=== PATIENT | male | born 1960 | race Hispanic/Latino ===

== ENCOUNTER 2017-10-11 05:37 | Emergency (ER) | payer SELFPAY ==
[2017-10-11] MEDS ORDERED: ASPIRIN PO ONE (06:09)
[2017-10-11] MEDS ORDERED: ASPIRIN ONE (06:12)
[2017-10-11 07:52] LABS: Basophils % (Auto) 0.2 % (0.0-1.8); Eosinophils % (Auto) 0.2 % (0.0-4.3); Hematocrit 36.9 % (35.5-45.6); Hemoglobin 12.5 gm/dl (11.8-15.2); Lymphocytes # (Auto) 0.7 K/mm3 (1.2-5.4); Mean Corpuscular HGB Conc 34 % (32-34); Mean Corpuscular Hemoglobin 33 pg (28-32); Mean Corpuscular Volume 99 fl (84-94); Monocytes # (Auto) 0.6 K/mm3 (0.0-0.8); Monocytes % (Auto) 7.2 % (0.0-7.3); Platelet Count 271 K/mm3 (140-440); Red Blood Count 3.74 M/mm3 (3.65-5.03); Red Cell Distribution Width 14.3 % (13.2-15.2)
[2017-10-11 08:12] LABS: BUN/Creatinine Ratio 14; Blood Urea Nitrogen 10 mg/dL (9-20); Calcium 8.1 mg/dL (8.4-10.2); Hemolysis Index 6
--- NOTE | 2017-10-11 08:37 | XRay Report ---
FINAL REPORT EXAM: XRAY CHEST SINGLE VIEW HISTORY: Chest Pain TECHNIQUE: AP portable view(s) of the chest obtained. PRIORS: None. FINDINGS: No mediastinal shift. Cardiac silhouette is not enlarged. There is nodular thickening in the region of the right minor fissure. No pneumothorax or effusion. Ill-defined retrocardiac left basilar opacity. IMPRESSION: Ill-defined retrocardiac left basilar opacity may represent infection in the proper clinical setting. PA and lateral chest radiographic follow-up to resolution is recommended. There is nodular thickening in the region of the right minor fissure. If this finding has not been previously documented, routine follow-up chest CT is suggested.
[2017-10-11] MEDS ORDERED: ROCEPHIN/NS 1 GM/50 ML 1 GM/50 ML BAG IV ONE (10:35)
[2017-10-11] MEDS ORDERED: TORADOL IV ONE (10:35)
[2017-10-11] MEDS ORDERED: MORPHINE IV ONE (10:35)
[2017-10-11] MEDS ORDERED: cefTRIAXone 1 GM in NACL 0.9% 20 ML IV ONE (11:00)
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
[2017-10-11 12:39] VITALS: BP 124/72
== END 2017-10-11 12:38 | disposition home or self-care (01) ==
LOC: ED 05:37
DX: J18.1 Lobar pneumonia, unspecified organism (principal)
CPT/HCPCS: 36415; 71045; 80048; 84484; 85025; 93005; 93010; 96365; 96375; 99285; J0696; J1885; J2270; 96361

== ENCOUNTER 2021-11-29 19:56 | Inpatient (IN) | payer SELFPAY ==
[2021-11-29] MEDS ORDERED: SODIUM CHLORIDE 0.9% 1000 ML 1,000 ML IV ONE (21:17)
[2021-11-29] MEDS ORDERED: MORPHINE 4 MG/1 ML INJ IV ONE (21:17)
[2021-11-29] MEDS ORDERED: ONDANSETRON 4 MG/2 ML INJ IV ONE (21:17)
--- NOTE | 2021-11-29 21:21 | Event Note ---
ED Screening Note Date of service: 11/29/21 Time: 21:19 ED Screening Note: Patient 61-year-old male with history of inguinal hernia who presents with abdominal pain radiating to right inguinal region for the past 2 days with nausea vomiting. Patient denies fevers or chills. Patient does endorse intermittent nausea and vomiting. Pain is described as 6/10 exacerbated by movement. Pain is relieved by nothing tried. Patient is tolerating p.o. at this time however. This initial assessment/diagnostic orders/clinical plan/treatment(s) is/are subject to change based on patients health status, clinical progression and re- assessment by fellow clinical providers in the ED. Further treatment and workup at subsequent clinical providers discretion. Patient/guardian urged not to elope from the ED as their condition may be serious if not clinically assessed and managed. Initial orders include: CT ABD Pelv, cbc, cmp, ua, iv , IFVs , Morphine , zofran
[2021-11-29 21:46] LABS: Basophils # (Auto) 0.1 K/mm3 (0.0-0.1); Basophils % (Auto) 0.3 % (0.0-1.8); Eosinophils % (Auto) 0.1 % (0.0-4.3); Hematocrit 32.9 % (35.5-45.6); Hemoglobin 10.2 gm/dl (11.8-15.2); Lymphocytes # (Auto) 1.3 K/mm3 (1.2-5.4); Lymphocytes % (Auto) 7.3 % (13.4-35.0); Mean Corpuscular HGB Conc 31 % (32-34); Mean Corpuscular Volume 93 fl (84-94); Monocytes # (Auto) 0.9 K/mm3 (0.0-0.8); Monocytes % (Auto) 5.1 % (0.0-7.3); Platelet Count 775 K/mm3 (140-440); Red Blood Count 3.55 M/mm3 (3.65-5.03); Red Cell Distribution Width 16.3 % (13.2-15.2)
[2021-11-29 22:05] LABS: Albumin 3.7 g/dL (3.9-5); Calcium 8.8 mg/dL (8.4-10.2)
[2021-11-29] MEDS ORDERED: HYDROmorphone 1 MG/1 ML INJ IV ONE ×2 (22:06→23:42)
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
[2021-11-29] MEDS ORDERED: POTASSIUM CHLORIDE ER 20 MEQ TAB PO ONE (22:54)
[2021-11-29] MEDS ORDERED: LACTATED RINGERS 2,000 ML IV ONE (22:54)
--- NOTE | 2021-11-29 23:06 | Cat Scan Report ---
CT ABDOMEN AND PELVIS WITH IV CONTRAST INDICATION: Pt complains of abdominal pain. COMPARISON: None available. TECHNIQUE: All CT scans at this facility use dose modulation, automated exposure control, iterative reconstructi on or weight based dosing, when appropriate, to reduce radiation dose to as low as reasonably achieva ble. FINDINGS: Lung Bases: No significant abnormality. Skeletal System: No acute abnormality. There is chronic compression deformity at L2. End-stage degen erative changes are noted at the hips. ABDOMEN: Liver: No significant abnormality. Gallbladder: No significant abnormality. Bile Ducts: No significant abnormality. Adrenals: No significant abnormality. Right Kidney: No significant abnormality. Left Kidney: No significant abnormality. There are a few punctate cysts. Pancreas: No significant abnormality. Spleen: No significant abnormality. Upper GI tract: Stomach and duodenum are unremarkable. There is mild thickening of proximal small bow el in the left upper quadrant. Lymph Nodes: No significant adenopathy. Aorta: No significant abnormality. Additional Findings: No significant abnormality. PELVIS: Colon: No acute abnormality. Urinary Bladder and Distal Ureters: No significant abnormality. Appendix: No significant abnormality. Lymph Nodes: No significant adenopathy. Additional Findings: There is a large right inguinal hernia which contains several loops of small bow el. The majority of the herniated small bowel is decompressed. There are a few fluid-filled mildly di stended loops within the hernia sac. There is a small left inguinal hernia as well. IMPRESSION: 1. Probable mild proximal enteritis. 2. Large right inguinal hernia contains multiple loops of distal small bowel. The majority of the he rniated small bowel is relatively collapsed. There are a few mildly distended loops of small bowel wi thin the hernia sac. Signer Name: Ernst Ellison MD Signed: 11/29/2021 11:02 PM Workstation Name: [id number]
[2021-11-29 23:16] LABS: INR 0.92 (0.87-1.13)
[2021-11-29 23:17] LABS: Partial Thromboplastin Time 26.9 Sec. (24.2-36.6)
[2021-11-29] MEDS ORDERED: PIPERACIL/TAZOBACTA 4.5/NS 100 4.5 GM/100 ML VIAL IV ONE (23:29)
[2021-11-30] MEDS ORDERED: ONDANSETRON 4 MG/2 ML INJ IV PRN ×3 (00:33→11:00)
[2021-11-30] MEDS ORDERED: MORPHINE 2 MG/1 ML INJ IV PRN (00:33)
[2021-11-30] MEDS ORDERED: HYDROmorphone 1 MG/1 ML INJ IV PRN (00:33)
--- NOTE | 2021-11-30 00:54 | Consultation ---
History of Present Illness Consult date: 11/30/21 Reason for consult: hernia Chief complaint: hernia - History of present illness History of present illness: 61 yo M with hx of chronic right inguinal hernia, chronic neck pain who presents to ER with c/o right inguinal pain radiating into scrotum for the last few days. States he has not been able to reduce the hernia for several months. He states he has not sought medical attention due to social issues. Pain is sharp. It is made better by medications provided in ER. He has been admitted to [facility] over the last 2-3 months for medical issues including LE edema, breathing problems, and LE cellulitis. He states he completed a course of antibiotics but does not know any of the other medications he was prescribed upon discharge from those facilities. He denies fevers. +nausea but no vomiting. He is having BMs regularly and passing flatus. He is urinating but states it has been difficult with hernia. He denies dysuria. No cough, sob. He was tolerating a diet and is asking for water now. No abdominal pain. He also c/o neuropathy in fingers and legs. He has been drinking heavily to cope with pain from neuropathy. Past History Past Medical History: other (chronic right inguinal hernia, chronic pain, neuropathy) Past Surgical History: Other (L arm surgery, R great toe amputation) Social history: smoking (vape), alcohol abuse (1 pint of liquor daily), other (methamphetamine use in the past - last Aug 2021) Medications and Allergies Allergies Allergy/AdvReac Type Severity Reaction Status Date / Time No Known Allergies Allergy Unverified 10/11/17 06:09 Home Medications Medication Instructions Recorded Confirmed Last Taken Type Amoxicillin 500 mg PO TID #21 capsule 10/11/17 Unknown Rx Benzonatate [Tessalon Perles] 100 mg PO Q8HR #12 capsule 10/11/17 Unknown Rx HYDROcodone/APAP 5-325 [[place] 1 each PO Q4HR PRN #12 tablet 10/11/17 Unknown Rx 5/325] Active Meds: Active Medications Hydromorphone HCl (Hydromorphone 1 Mg/1 Ml Inj) 0.5 mg IV Q3H PRN PRN Reason: Pain , Severe (7-10) Lactated Ringer's (Lactated Ringers) 2,000 mls @ 999 mls/hr IV BOLUS ONE Stop: 11/30/21 00:54 Sodium Chloride (Nacl 0.9% 1000 Ml) 1,000 mls @ 125 mls/hr IV DIRECT SOFIA Morphine Sulfate (Morphine 2 Mg/1 Ml Inj) 2 mg IV Q4H PRN PRN Reason: Pain, Moderate (4-6) Ondansetron HCl (Ondansetron 4 Mg/2 Ml Inj) 4 mg IV Q6H PRN PRN Reason: Nausea And Vomiting Review of Systems All systems: negative (10 pt ROS performed and negative except for that listed in HPI) Exam Vital Signs Resp 20 11/29/21 21:26 Narrative exam: Gen: AAOX3. Mild distress ENT: No scleral icterus or conjunctival pallor CV: s1, S2+ Resp: even and unlabored Abd: soft, NT, ND. There is a moderate sized right inguinoscrotal hernia without overlying skin changes. The hernia is soft and able to be reduced. +mod discomfort during reduction. No r/r/g Ext: No c/c/e. There is mild cellulitis involving b/l LE. There is a small open wound of the right great toe stump anteriorly and 2nd toe plantar aspect. Wounds are clean without drainage. Wound bed pink. Feet are warm. Results - Labs 11/29/21 21:22 11/29/21 21:22 Abnormal lab results 11/29/21 11/29/21 11/29/21 Range/Units 21:22 21:22 22:26 WBC 18.1 H (4.5-11.0) K/mm3 RBC 3.55 L (3.65-5.03) M/mm3 Hgb 10.2 L (11.8-15.2) gm/dl Hct 32.9 L (35.5-45.6) % MCHC 31 L (32-34) % RDW 16.3 H (13.2-15.2) % Plt Count 775 H (140-440) K/mm3 Lymph % (Auto) 7.3 L (13.4-35.0) % [place] # (Auto) 0.9 H (0.0-0.8) K/mm3 Seg Neutrophils % 87.2 H (40.0-70.0) % Seg Neutrophils # 15.8 H (1.8-7.7) K/mm3 Sodium 132 L (137-145) mmol/L Potassium 3.4 L (3.6-5.0) mmol/L Chloride 93.4 L (98-107) mmol/L Carbon Dioxide 20 L (22-30) mmol/L Creatinine 1.9 H (0.8-1.3) mg/dL Glucose 159 H (75-100) mg/dL Lactic Acid 3.10 H* (0.7-2.0) mmol/L Alkaline Phosphatase 150 H (35-129) units/L Total Protein 8.7 H (6.3-8.2) g/dL Albumin 3.7 L (3.9-5) g/dL Diabetes panel 11/29/21 Range/Units 21:22 Sodium 132 L (137-145) mmol/L Potassium 3.4 L (3.6-5.0) mmol/L Chloride 93.4 L (98-107) mmol/L Carbon Dioxide 20 L (22-30) mmol/L BUN 20 (9-20) mg/dL Creatinine 1.9 H (0.8-1.3) mg/dL Glucose 159 H (75-100) mg/dL Calcium 8.8 (8.4-10.2) mg/dL AST 31 (5-40) units/L ALT 24 (7-56) units/L Alkaline Phosphatase 150 H (35-129) units/L Total Protein 8.7 H (6.3-8.2) g/dL Albumin 3.7 L (3.9-5) g/dL Calcium panel 11/29/21 Range/Units 21:22 Calcium 8.8 (8.4-10.2) mg/dL Albumin 3.7 L (3.9-5) g/dL Pituitary panel 11/29/21 Range/Units 21:22 Sodium 132 L (137-145) mmol/L Potassium 3.4 L (3.6-5.0) mmol/L Chloride 93.4 L (98-107) mmol/L Carbon Dioxide 20 L (22-30) mmol/L BUN 20 (9-20) mg/dL Creatinine 1.9 H (0.8-1.3) mg/dL Glucose 159 H (75-100) mg/dL Calcium 8.8 (8.4-10.2) mg/dL Adrenal panel 11/29/21 Range/Units 21:22 Sodium 132 L (137-145) mmol/L Potassium 3.4 L (3.6-5.0) mmol/L Chloride 93.4 L (98-107) mmol/L Carbon Dioxide 20 L (22-30) mmol/L BUN 20 (9-20) mg/dL Creatinine 1.9 H (0.8-1.3) mg/dL Glucose 159 H (75-100) mg/dL Calcium 8.8 (8.4-10.2) mg/dL Total Bilirubin 0.30 (0.1-1.2) mg/dL AST 31 (5-40) units/L ALT 24 (7-56) units/L Alkaline Phosphatase 150 H (35-129) units/L Total Protein 8.7 H (6.3-8.2) g/dL Albumin 3.7 L (3.9-5) g/dL - Imaging CT scan - abdomen: report reviewed, image reviewed CT scan - pelvis: report reviewed, image reviewed Assessment and Plan 61 yo M with reducible chronic right inguinal hernia, not obstructed Plan: Admit to hospitalist service 1. NPO 2. aggressive IVF hydration 3. prn pain and nausea control 4. DVT ppx 5. UA/CXR 6. repeat labs in am 7. empiric abx 8. recommend CIWA protocol 9. Plan to resuscitate patient tonight and hernia repair in am. Hernia is cu rrently reducible without clinical or radiographic evidence of obstruction, strangulation. Suspect patient is volume depleted which may partially account for lab abnormalities. Other sources of infections to be r/o. 10. Discussed hernia surgery with patient. All risks, benefits, alternatives discussed. Questions answered and consent obtained. D/W Dr. Pina Thank you, please call with questions
--- NOTE | 2021-11-30 01:05 | XRay Report ---
CHEST 1 VIEW INDICATION: sob. COMPARISON: 10/11/2017 FINDINGS: Support devices: None. Heart: Normal. Lungs/Pleura: No consolidation or effusion. No pneumothorax. IMPRESSION: 1. No acute findings. Signer Name: Ernst Ellison MD Signed: 11/30/2021 1:01 AM Workstation Name: [id number]
[2021-11-30] MEDS ORDERED: ACETAMINOPHEN 325 MG TAB PO PRN ×2 (01:41→02:49)
--- NOTE | 2021-11-30 01:53 | History and Physical Report ---
History of Present Illness Date of examination: 11/30/21 Date of admission: 11/30/2021 Chief complaint: Scrotal Swelling History of present illness: 61-year-old male seen in the emergency room today complaining of scrotal swelling. Patient has known history of right-sided inguinal/scrotal hernia. He is usually able to reduce it however he has had difficulty reducing it today and has also been having pain. Swelling has been getting progressively worse. He has had some nausea but no vomiting. Denies any hematuria or dysuria, denies any fever or chills. Patient is currently homeless. He has not been following up with any physician secondary to insurance issues. Work-up in the emergency room today, CT of the abdomen and pelvis reveals probable mild proximal enteritis, large right inguinal hernia. General surgeon has been consulted by the ER physician for evaluation. Past History Past Medical History: other (chronic right inguinal hernia, chronic pain, neuropathy)) Past Surgical History: Other (L arm surgery, R great toe amputation) Social history: smoking (vape), alcohol abuse (1 pint of liquor daily), other (methamphetamine use in the past - last Aug 2021) Medications and Allergies Allergies Allergy/AdvReac Type Severity Reaction Status Date / Time No Known Allergies Allergy Unverified 10/11/17 06:09 Home Medications Medication Instructions Recorded Confirmed Last Taken Type Amoxicillin 500 mg PO TID #21 capsule 10/11/17 Unknown Rx Benzonatate [Tessalon Perles] 100 mg PO Q8HR #12 capsule 10/11/17 Unknown Rx HYDROcodone/APAP 5-325 [[place] 1 each PO Q4HR PRN #12 tablet 10/11/17 Unknown Rx 5/325] Active Meds: Active Medications Acetaminophen (Acetaminophen 325 Mg Tab) 650 mg PO Q4H PRN PRN Reason: Pain MILD(1-3)/Fever >100.5/GUZMAN Hydromorphone HCl (Hydromorphone 1 Mg/1 Ml Inj) 0.5 mg IV Q3H PRN PRN Reason: Pain , Severe (7-10) Sodium Chloride (Nacl 0.9% 1000 Ml) 1,000 mls @ 125 mls/hr IV DIRECT SOFIA Morphine Sulfate (Morphine 2 Mg/1 Ml Inj) 2 mg IV Q4H PRN PRN Reason: Pain, Moderate (4-6) Ondansetron HCl (Ondansetron 4 Mg/2 Ml Inj) 4 mg IV Q6H PRN PRN Reason: Nausea And Vomiting Ondansetron HCl (Ondansetron 4 Mg/2 Ml Inj) 4 mg IV Q8H PRN PRN Reason: Nausea And Vomiting Sodium Chloride (Sodium Chloride 0.9% 10 Ml Flush Syringe) 10 ml IV BID SOFIA Sodium Chloride (Sodium Chloride 0.9% 10 Ml Flush Syringe) 10 ml IV PRN PRN PRN Reason: LINE FLUSH Review of Systems Constitutional: no fever, no chills Ears, nose, mouth and throat: no nasal congestion, no sore throat Cardiovascular: no chest pain, no palpitations Respiratory: no cough, no shortness of breath Gastrointestinal: no abdominal pain, no nausea, no vomiting, no diarrhea Genitourinary Male: no dysuria, no hematuria, no flank pain Musculoskeletal: no neck pain, no low back pain Integumentary: no rash, no pruritis Neurological: no headaches, no confusion Psychiatric: no anxiety, no depression Endocrine: no polyphagia, no polydipsia, no polyuria, no nocturia Exam - Constitutional Vitals: Temp Pulse Resp BP Pulse Ox 98.0 F 100 H 20 110/64 98 11/29/21 21:37 11/29/21 21:37 11/30/21 01:09 11/29/21 21:37 11/29/21 23:40 General appearance: Present: no acute distress, well-nourished - EENT Eyes: Present: PERRL, EOM intact. Absent: scleral icterus ENT: hearing intact, clear oral mucosa, dentition normal - Neck Neck: Present: supple, normal ROM - Respiratory Respiratory effort: normal Respiratory: bilateral: CTA - Cardiovascular Rhythm: regular Heart Sounds: Present: S1 & S2. Absent: gallop, systolic murmur, diastolic murmur, rub, click - Extremities Extremities: no ischemia, pulses intact, pulses symmetrical, No edema, normal temperature, normal color, Full ROM Peripheral Pulses: within normal limits - Abdominal General gastrointestinal: Present: soft, non-tender, non-distended, normal bowel sounds Male genitourinary: Present: right inguinal hernia (Huge Nonreducible right scrotal hernia, mild tenderness) - Integumentary Integumentary: Present: clear, warm, dry, normal turgor. Absent: rash - Musculoskeletal Musculoskeletal: strength equal bilaterally - Psychiatric Psychiatric: appropriate mood/affect, intact judgment & insight, memory intact, cooperative - Neurologic Neurologic: CNII-XII intact, no focal deficits, moves all extremities Results - Labs CBC & Chem 7: 11/30/21 06:45 11/29/21 21:22 Labs: Abnormal lab results 11/29/21 11/29/21 11/29/21 Range/Units 21:22 21:22 22:26 WBC 18.1 H (4.5-11.0) K/mm3 RBC 3.55 L (3.65-5.03) M/mm3 Hgb 10.2 L (11.8-15.2) gm/dl Hct 32.9 L (35.5-45.6) % MCHC 31 L (32-34) % RDW 16.3 H (13.2-15.2) % Plt Count 775 H (140-440) K/mm3 Lymph % (Auto) 7.3 L (13.4-35.0) % [place] # (Auto) 0.9 H (0.0-0.8) K/mm3 Seg Neutrophils % 87.2 H (40.0-70.0) % Seg Neutrophils # 15.8 H (1.8-7.7) K/mm3 Sodium 132 L (137-145) mmol/L Potassium 3.4 L (3.6-5.0) mmol/L Chloride 93.4 L (98-107) mmol/L Carbon Dioxide 20 L (22-30) mmol/L Creatinine 1.9 H (0.8-1.3) mg/dL Glucose 159 H (75-100) mg/dL Lactic Acid 3.10 H* (0.7-2.0) mmol/L Alkaline Phosphatase 150 H (35-129) units/L Total Protein 8.7 H (6.3-8.2) g/dL Albumin 3.7 L (3.9-5) g/dL Assessment and Plan - Patient Problems (1) Scrotal hernia Current Visit: Yes Status: Acute Plan to address problem: None reducible. Consult placed to general surgery for evaluation and recommendations. Patient currently made NPO. (2) Hypokalemia Current Visit: Yes Status: Acute Plan to address problem: Potassium will be repleted and will monitor chemistry. (3) Renal insufficiency Current Visit: Yes Status: Acute Plan to address problem: Patient placed on IV fluid normal saline. We will monitor BUN and creatinine. (4) DVT prophylaxis Current Visit: Yes Status: Acute Plan to address problem: Patient placed on sequential compression device. (5) Full code status Current Visit: Yes Status: Acute Plan to address problem: Patient is full code.
[2021-11-30] MEDS ORDERED: MORPHINE 4 MG/1 ML INJ IV PRN (02:49)
[2021-11-30 04:09] LABS: Mucus,Urine FEW /HPF
[2021-11-30 04:12] LABS: Bilirubin,Urine Negative (Negative); Color,Urine Yellow (Yellow)
[2021-11-30 04:13] LABS: Blood,Urine Negative (Negative); Urobilinogen,Urine < 2.0 mg/dL (<2.0)
[2021-11-30] MEDS: SODIUM CHLORIDE 0.9% 1000 ML 1,000 ML IV SCH (04:59)
[2021-11-30 07:14] LABS: Hematocrit 26.9 % (35.5-45.6); Hemoglobin 8.5 gm/dl (11.8-15.2); Mean Corpuscular HGB Conc 32 % (32-34); Mean Corpuscular Volume 92 fl (84-94); Platelet Count 598 K/mm3 (140-440); Red Blood Count 2.93 M/mm3 (3.65-5.03); Red Cell Distribution Width 16.7 % (13.2-15.2)
[2021-11-30 07:35] LABS: Calcium 7.9 mg/dL (8.4-10.2)
[2021-11-30] MEDS: MORPHINE 2 MG/1 ML INJ IV PRN ×2 (08:41→21:26)
--- NOTE | 2021-11-30 09:07 | Progress Note ---
Assessment and Plan Assessment and plan: 61-year-old male seen in the emergency room today complaining of scrotal swelling. Patient has known history of right-sided inguinal/scrotal hernia. He is usually able to reduce it however he has had difficulty reducing it today and has also been having pain. Swelling has been getting progressively worse which prompted visit to the emergency room. CT of the abdomen and pelvis reveals probable mild proximal enteritis, large right inguinal hernia that contains multiple loops of distal small bowel. Large right inguinal hernia Abdominal pain Enteritis Acute kidney injury. Baseline creatinine 0.7 in 2018 Hypokalemia. Resolved Sepsis. Present on admission. Patient meets criteria given the leukocytosis, tachycardia and diagnosis of enteritis 11/30/2021. Continue IV fluid hydration. Acute kidney injury is secondary to vasomotor nephropathy/dehydration. Continue antiemetics and pain control. Surgery consulted and to repair hernia this morning. No radiographic evidence of obstruction or strangulation. Patient does have sepsis secondary to enteritis as seen on CT scan. We will continue IV antibiotics. History Interval history: No new issues overnight Hospitalist Physical - Constitutional Vitals: Temp Pulse Resp BP Pulse Ox 98.0 F 93 H 20 108/58 95 11/29/21 21:37 11/30/21 07:33 11/30/21 08:41 11/30/21 07:33 11/30/21 07:33 General appearance: Present: no acute distress, well-nourished - EENT Eyes: Present: PERRL, EOM intact ENT: hearing intact, clear oral mucosa, dentition normal - Neck Neck: Present: supple, normal ROM - Respiratory Respiratory effort: normal Respiratory: bilateral: CTA - Cardiovascular Rhythm: regular Heart Sounds: Present: S1 & S2. Absent: gallop, rub - Extremities Extremities: no ischemia, No edema, Full ROM - Abdominal General gastrointestinal: soft, non-tender, non-distended, normal bowel sounds - Integumentary Integumentary: Present: clear, warm, dry - Neurologic Neurologic: CNII-XII intact, moves all extremities Results - Labs CBC & Chem 7: 12/01/21 05:30 12/01/21 05:30 Labs: Laboratory Last Values WBC 15.1 K/mm3 (4.5-11.0) H 11/30/21 06:45 RBC 2.93 M/mm3 (3.65-5.03) L 11/30/21 06:45 Hgb 8.5 gm/dl (11.8-15.2) L 11/30/21 06:45 Hct 26.9 % (35.5-45.6) L D 11/30/21 06:45 MCV 92 fl (84-94) 11/30/21 06:45 MCH 29 pg (28-32) 11/30/21 06:45 MCHC 32 % (32-34) 11/30/21 06:45 RDW 16.7 % (13.2-15.2) H 11/30/21 06:45 Plt Count 598 K/mm3 (140-440) H 11/30/21 06:45 Lymph % (Auto) 7.3 % (13.4-35.0) L 11/29/21 21:22 [place] % (Auto) 5.1 % (0.0-7.3) 11/29/21 21:22 Eos % (Auto) 0.1 % (0.0-4.3) 11/29/21 21:22 Baso % (Auto) 0.3 % (0.0-1.8) 11/29/21 21:22 Lymph # (Auto) 1.3 K/mm3 (1.2-5.4) 11/29/21 21:22 [place] # (Auto) 0.9 K/mm3 (0.0-0.8) H 11/29/21 21:22 Eos # (Auto) 0.0 K/mm3 (0.0-0.4) 11/29/21 21:22 Baso # (Auto) 0.1 K/mm3 (0.0-0.1) 11/29/21 21:22 Seg Neutrophils % 87.2 % (40.0-70.0) H 11/29/21 21:22 Seg Neutrophils # 15.8 K/mm3 (1.8-7.7) H 11/29/21 21:22 PT 13.3 Sec. (12.2-14.9) 11/29/21 22:26 INR 0.92 (0.87-1.13) 11/29/21 22:26 APTT 26.9 Sec. (24.2-36.6) 11/29/21 22:26 Sodium 137 mmol/L (137-145) 11/30/21 06:45 Potassium 3.9 mmol/L (3.6-5.0) 11/30/21 06:45 Chloride 100.5 mmol/L (98-107) 11/30/21 06:45 Carbon Dioxide 22 mmol/L (22-30) 11/30/21 06:45 Anion Gap 18 mmol/L 11/30/21 06:45 BUN 21 mg/dL (9-20) H 11/30/21 06:45 Creatinine 1.7 mg/dL (0.8-1.3) H 11/30/21 06:45 Estimated GFR 41 ml/min 11/30/21 06:45 BUN/Creatinine Ratio 12 % 11/30/21 06:45 Glucose 91 mg/dL (75-100) 11/30/21 06:45 Hemoglobin A1c 5.4 % (4-6) 11/30/21 06:45 Lactic Acid 1.50 mmol/L (0.7-2.0) 11/30/21 01:08 Calcium 7.9 mg/dL (8.4-10.2) L 11/30/21 06:45 Magnesium 2.00 mg/dL (1.7-2.3) 11/29/21 22:26 Total Bilirubin 0.30 mg/dL (0.1-1.2) 11/29/21 21:22 AST 31 units/L (5-40) 11/29/21 21:22 ALT 24 units/L (7-56) 11/29/21 21:22 Alkaline Phosphatase 150 units/L (35-129) H 11/29/21 21:22 Total Creatine Kinase 58 units/L (55-170) 11/29/21 22:26 Total Protein 8.7 g/dL (6.3-8.2) H 11/29/21 21:22 Albumin 3.7 g/dL (3.9-5) L 11/29/21 21:22 Albumin/Globulin Ratio 0.7 % 11/29/21 21:22 Urine Color Yellow (Yellow) 11/30/21 03:24 Urine Turbidity Clear (Clear) 11/30/21 03:24 Urine pH 6.0 (5.0-7.0) 11/30/21 03:24 Ur Specific [place] 1.005 (1.003-1.030) 11/30/21 03:24 Urine Protein 30 mg/dl mg/dL (Negative) 11/30/21 03:24 Urine Glucose (UA) Negative mg/dL (Negative) 11/30/21 03:24 Urine Ketones Negative mg/dL (Negative) 11/30/21 03:24 Urine Blood Negative (Negative) 11/30/21 03:24 Urine Nitrite Negative (Negative) 11/30/21 03:24 Ur Reducing Substances Not Reportable 11/30/21 03:24 Urine Bilirubin Negative (Negative) 11/30/21 03:24 Urine Ictotest Not Reportable 11/30/21 03:24 Urine Urobilinogen < 2.0 mg/dL (<2.0) 11/30/21 03:24 Ur Leukocyte Esterase Negative (Negative) 11/30/21 03:24 Urine WBC (Auto) 4.0 /HPF (0.0-6.0) 11/30/21 03:24 Urine RBC (Auto) 1.0 /HPF (0.0-6.0) 11/30/21 03:24 U Epithel Cells (Auto) 1.0 /HPF (0-13.0) 11/30/21 03:24 Urine Mucus Few /HPF 11/30/21 03:24 Blood Type A POSITIVE 11/29/21 22:26 Antibody Screen Negative 11/29/21 22:26 Microbiology: Microbiology 11/29/21 01:10 Peripheral/Venous Blood Culture - Preliminary Culture in Progress 11/30/21 01:10 Peripheral/Venous Blood Culture - Preliminary Culture in Progress [place]/IV: Voiding Method Urinal Active Medications - Current Medications Current Medications: Generic Name Dose Route Start Last Admin Trade Name Freq PRN Reason Stop Dose Admin Acetaminophen 650 mg 11/30/21 02:49 Acetaminophen 325 Mg Tab PO Q4H PRN Pain MILD(1-3)/Fever >100.5/GUZMAN Heparin Sodium (Porcine) 5,000 unit 11/30/21 14:00 Heparin 5,000 Unit/1 Ml Vial SUB-Q Q8HR SOFIA Hydromorphone HCl 0.5 mg 11/30/21 00:33 11/30/21 04:59 Hydromorphone 1 Mg/1 Ml Inj IV 0.5 mg Q3H PRN Administration Pain , Severe (7-10) Sodium Chloride 1,000 mls @ 125 mls/hr 11/30/21 00:45 11/30/21 04:59 Nacl 0.9% 1000 Ml IV 125 mls/hr DIRECT SOFIA Administration Piperacillin Sod/Tazobactam Sod 4.5 gm in 100 mls @ 200 mls/hr 11/30/21 09:00 Zosyn/Ns 4.5gm/100ml IV Q8H SOFIA Protocol Morphine Sulfate 2 mg 11/30/21 02:49 11/30/21 08:41 Morphine 2 Mg/1 Ml Inj IV 2 mg Q4H PRN Administration Pain, Moderate (4-6) Ondansetron HCl 4 mg 11/30/21 01:41 Ondansetron 4 Mg/2 Ml Inj IV Q8H PRN Nausea And Vomiting Sodium Chloride 10 ml 11/30/21 10:00 Sodium Chloride 0.9% 10 Ml Flush Syringe IV BID SOFIA Sodium Chloride 10 ml 11/30/21 01:41 Sodium Chloride 0.9% 10 Ml Flush Syringe IV PRN PRN LINE FLUSH
[2021-11-30] MEDS: PIPERACIL/TAZOBACTA 4.5/NS 100 4.5 GM/100 ML VIAL IV SCH ×2 (09:58→17:10)
[2021-11-30] MEDS ORDERED: fentaNYL 100 MCG/2 ML INJ ONE (10:52)
[2021-11-30] MEDS ORDERED: ONDANSETRON 4 MG/2 ML INJ ONE (10:52)
[2021-11-30] MEDS ORDERED: LIDOCAINE MPF (2%) 20 MG/1 ML VIAL 5 ML ONE (10:52)
[2021-11-30] MEDS ORDERED: ROCURONIUM 50 MG/5 ML INJ IV ONE (10:52)
[2021-11-30] MEDS ORDERED: dexAMETHasone 20 MG/5 ML VIAL ONE (10:52)
[2021-11-30] MEDS ORDERED: propofoL 200 MG/20 ML VIAL IV ONE (10:53)
[2021-11-30] MEDS ORDERED: BUPIVACAINE/PF (0.5%) 5 MG/1 ML 30 ML VIAL INFILTRATI ONE ×2 (10:55→12:28)
[2021-11-30] MEDS ORDERED: LIDOCAINE (1%) 10 MG/1 ML VIAL 20 ML MDV ONE (10:55)
[2021-11-30] MEDS ORDERED: MIDAZOLAM 2 MG/2 ML INJ IV NR (11:00)
[2021-11-30] MEDS: HEPARIN 5,000 UNIT/1 ML VIAL SUB-Q SCH ×3 (11:00→21:27)
[2021-11-30] MEDS: LACTATED RINGERS 1,000 ML IV SCH ×2 (11:00→17:40)
--- NOTE | 2021-11-30 11:07 | Anesthesia Day of Surgery ---
Anesthesia Day of Surgery - Day of Surgery Patient Examined: Yes Patient H&P Reviewed: Yes Patient is NPO: Yes
--- NOTE | 2021-11-30 11:07 | Anesthesia Consultation ---
Anesthesia Consult and Med Hx Date of service: 11/30/21 - Airway Anesthetic Teeth Evaluation: Edentulous ROM Head & Neck: Inadequate (restricted extension) Mental/Hyoid Distance: Adequate Mallampati Class: Class II Intubation Access Assessment: Possibly Difficult - Pulmonary Exam CTA: Yes - Cardiac Exam Cardiac Exam: RRR - Pre-Operative Health Status ASA Pre-Surgery Classification: ASA3 Proposed Anesthetic Plan: General - Pulmonary Hx Smoking: Yes (vapes) Hx Respiratory Symptoms: No (no current resp symptoms) SOB: Yes (occasional dyspnea) - Cardiovascular System Hx Hypertension: No Hx Heart Attack/AMI: No Hx Percutaneous Transluminal Coronary Angioplasty (PTCA): No - Central Nervous System CVA: Yes (remote hx possible TIA; takes ASA 81 daily, last dose 11/29/21 ) - Endocrine Hx Renal Disease: No Hx Liver Disease: No Hx Insulin Dependent Diabetes: No Hx Non-Insulin Dependent Diabetes: No Hx Thyroid Disease: No - Hematic Hx Anemia: Yes - Other Systems Hx Alcohol Use: Yes (1 pint EtOh daily, last drink ; no hx withdrawal) Hx Substance Use: Yes (hx meth use; denies recent use) Hx Obesity: No - Additional Comments Anesthesia Medical History Comments: No hx anesthetic complications.
[2021-11-30] MEDS ORDERED: LIDOCAINE (1%) 10 MG/1 ML VIAL 20 ML MDV INFILTRATI ONE (12:28)
[2021-11-30] MEDS ORDERED: WATER FOR IRRIG STERILE 1,500 ML BOTTLE IR ONE (12:29)
--- NOTE | 2021-11-30 14:01 | Post Operative Note ---
Date of procedure: 11/30/21 Pre-op diagnosis: bilateral inguinal hernia, right chronically incarcerated Post-op diagnosis: other (bilateral incarcerated inguinal hernias) Findings: Large direct right inguinal hernia containing viable, mildly dilated loops of small bowel. Left [place] hernia containing incarcerated preperitoneal fat Anesthesia: GETA, local, other (b.l ilioinguinal nerve block) Surgeon: UVALDO PICHARDO Estimated blood loss: minimal Pathology: none Condition: stable Disposition: PACU
[2021-11-30] MEDS: HYDROmorphone 1 MG/1 ML INJ IV PRN ×2 (14:22→14:32)
[2021-11-30] MEDS ORDERED: MIDAZOLAM 2 MG/2 ML INJ IV PRN (14:31)
--- NOTE | 2021-11-30 14:55 | Operative Report ---
Operative Report Operative Report: Patient Name: ANN-MARIE GREGG Date of procedure: 11/30/21 Pre-op diagnosis: bilateral inguinal hernia, right chronically incarcerated Post-op diagnosis: other (bilateral incarcerated inguinal hernias) Findings: Large direct right inguinal hernia containing viable, mildly dilated loops of small bowel. Left [place] hernia containing incarcerated preperitoneal fat Anesthesia: GETA, local, other (b.l ilioinguinal nerve block) Surgeon: UVALDO PICHARDO Estimated blood loss: minimal Pathology: none Condition: stable Disposition: PACU HPI and indication: Patient is a 61-year-old male who presented to the emergency room with increasing right inguinal and scrotal pain and a nonreducible right inguinal hernia. Patient has a chronic history of a right inguinal hernia. Work-up in the emergency room included CT scan and labs. Patient had a leukocytosis and elevated lactate. CT scan of the abdomen and pelvis revealed a large right inguinal scrotal hernia containing small bowel without evidence of obstruction. He also had a left inguinal hernia noted. On exam the patient's right inguinal hernia was soft and reducible with some tenderness during reduction. It was recommended that the patient be resuscitated and plan for bilateral inguinal hernia repair during admission. All risks, benefits, alternatives to surgery were discussed with the patient. Questions were answered. Consent obtained for robotic assisted bilateral inguinal hernia repair with mesh, possible open. Procedure in detail: Patient was identified in the preoperative area, take back to operating room placed on operative table in supine position. After anesthesia was induced both arms were tucked and all bony prominences padded appropriately. A Barbosa catheter was sterilely placed by the circulating nurse. The abdomen and b/l groins were then prepped and draped in usual sterile fashion and a timeout performed. Local anesthetic was infiltrated to skin at the intended incision sites. A supraumbilical incision was made through which a Veress needle was inserted. Veress needle positioning was confirmed using saline drop test and the abdomen insufflated to 15 mmHg. Once the abdomen was insufflated, the Veress needle was removed and a 5 mm Optiview trocar was placed as incision. The abdomen is inspected there was no underlying injury to any of the abdominal structures. Patient was placed in Trendelenburg and the pelvis examined. There were bilateral inguinal hernias. There was small intestine in the right inguinal hernia which was easily reduced under direct laparoscopic visualization. Although the small bowel was mildly distended and fluid-filled, it was viable. At this point, an 8 mm right upper quadrant and left upper quadrant robotic trocars were then placed under direct visualization. The 5 mm supraumbilical trocar was removed and replaced with a 12 mm balloon trocar under direct visualization. A Ray-Kashif was placed into the abdomen. The robot was then docked. A fenestrated bipolar was placed into arm #2 and a monopolar scissor in arm #1. The surgeon was then transferred to the console. First, I created a right sided preperitoneal flap. The peritoneum was scored approximately 5 to 6 cm from the hernia defect. The peritoneum was then incised from the midline to the ASIS. The preperitoneal flap was then developed in an avascular plane. I first defined the medial margin by dissecting to the pubic tubercle. The pubic tubercle was cleared of overlying fatty tissue using blunt dissection. I then created the lateral margin in a similar fashion. Great care was taken to avoid injury to any nerves. There was a large direct inguinal hernia and the hernia sac was gently reduced using blunt dissection and transecting cremasteric fibers with electrocautery. During the dissection, the cord structures were identified and protected. The cord structures and vas deferens were visualized throughout the entire dissection. The cord structures did appear chronically engorged. The hernia sac was extremely redundant and once it was completely reduced, the peritoneal flap was checked for hemostasis. Any additional cremasteric fibers that were were tenting up the peritoneum were divided. Hemostasis was carefully ensured. I then turned my attention to creating a left-sided preperitoneal flap. This was created in the same fashion as the right. On the left side the patient had a pantaloon type hernia with a direct and indirect component. There was preperitoneal fat incarcerated in the direct hernia. The preperitoneal fat was gently reduced using blunt dissection. The hernia sac was gently reduced in the same way as the right side and hemostasis ensured. The hernias were repaired using a LEFT large 3D max mesh on the Left and RIGHT large 3D max mesh on the right. The mesh along with suture material was placed into the abdomen by the psych assistant. Each mesh was positioned into the preperitoneal flap in the usual fashion. The medial portion of each mesh was sutured to Amado's ligament using an interrupted 2-0 Vicryl stitch. The lateral aspect of each mesh was sutured to the anterior lateral abdominal wall using a 2-0 Vicryl interrupted stitch. The mesh were seen to lay flat in each pocket with excellent coverage. The peritoneum was then reapproximated using 3- 0 running V-Loc stitch x2. A small tear in the peritoneum on the right was repaired with a [id number] 2 oh VueLock stitch. The entirety of mesh was covered with peritoneum. The robot was then undocked and the surgeon scrubbed back in. The remainder of the case was performed laparoscopically. All sharp materials along with a Ray-Kashif were removed from the abdomen under direct visualization. 18 Romansh Angiocaths were inserted through the lower lateral abdominal wall directly into the preperitoneal pocket in order to evacuate preperitoneal air bilateral. Ilioinguinal nerve blocks were given bilaterally under direct laparoscopic visualization using 5 cc of local anesthetic on each side. The 12 mm port was then removed and the fascia closed with an interrupted 0 Vicryl stitch using the José Díaz device. The abdomen was then slowly desufflated and the mesh was seen to lay flat in the preperitoneal space. The remaining trocars were removed. Skin incisions were once again infiltrated with local anesthetic. The skin incisions were approximated with 4-0 Monocryl subcuticular stitches and skin glue. The preperitoneal air was evacuated via the Angiocaths and both angiocaths were then removed. At the end of the case all sponge, instrument, sharp counts were correct x2. Patient was awoken from anesthesia and Barbosa catheter removed. Both testicles were palpated in the scrotum in anatomic position. The right testicle was larger than the left testicle at baseline. The patient was taken to PACU in stable condition.
[2021-11-30] MEDS ORDERED: KETOROLAC 30 MG/1 ML INJ IV SCH (15:00)
--- NOTE | 2021-11-30 16:14 | Post Anesthesia Evaluation ---
- Post Anesthesia Evaluation Patient Participated: Yes Airway Patent: Yes Stable Respiratory Function: Yes Nausea/Vomiting: No Temp > 96.8F: Yes Pain Manageable: Yes Adequeate Hydration: Yes Anesthesia Complications: No
[2021-11-30] MEDS: GABAPENTIN 300 MG CAP PO SCH (21:26)
[2021-12-01] MEDS: MORPHINE 2 MG/1 ML INJ IV PRN ×4 (01:37→22:16)
[2021-12-01] MEDS: PIPERACIL/TAZOBACTA 4.5/NS 100 4.5 GM/100 ML VIAL IV SCH ×3 (01:37→17:15)
[2021-12-01] MEDS: SODIUM CHLORIDE 0.9% 1000 ML 1,000 ML IV SCH (01:38)
[2021-12-01] MEDS: HEPARIN 5,000 UNIT/1 ML VIAL SUB-Q SCH ×3 (06:03→22:17)
[2021-12-01 06:14] LABS: Basophils % (Auto) 0.1 % (0.0-1.8); Hematocrit 23.1 % (35.5-45.6); Hemoglobin 7.3 gm/dl (11.8-15.2); Lymphocytes % (Auto) 7.4 % (13.4-35.0); Mean Corpuscular HGB Conc 32 % (32-34); Mean Corpuscular Volume 92 fl (84-94); Monocytes # (Auto) 0.8 K/mm3 (0.0-0.8); Monocytes % (Auto) 5.7 % (0.0-7.3); Platelet Count 548 K/mm3 (140-440); Red Cell Distribution Width 16.4 % (13.2-15.2)
[2021-12-01 06:40] LABS: BUN/Creatinine Ratio 17; Blood Urea Nitrogen 20 mg/dL (9-20); Calcium 7.9 mg/dL (8.4-10.2); Hemolysis Index 0
--- NOTE | 2021-12-01 08:23 | Discharge Summary ---
Providers - Providers Date of Admission: 11/30/21 02:49 Date of discharge: 12/01/21 Attending physician: SOY WEAVER 11/29/21 22:06 Consult to Physician [CONS] Urgent Comment: Dr. Pina spoke with Dr. Pichardo @ [id number] Consulting Provider: UVALDO PICHARDO Physician Instructions: Reason For Exam: HERNIA Primary care physician: WARD ATTENDANT Hospitalization Reason for admission: abd pain Condition: Good Hospital course: 61-year-old male seen in the emergency room today complaining of scrotal swelling. Patient has known history of right-sided inguinal/scrotal hernia. He is usually able to reduce it however he has had difficulty reducing it today and has also been having pain. Swelling has been getting progressively worse which prompted visit to the emergency room. CT of the abdomen and pelvis reveals probable mild proximal enteritis, large right inguinal hernia that contains multiple loops of distal small bowel. The patient was admitted with diagnosis of large right inguinal hernia, abdominal pain, enteritis, sepsis, acute kidney injury secondary to vasomotor nephropathy, hypokalemia. Surgery saw the patient in consultation and recommended that the patient be resuscitated and plan for bilateral inguinal hernia repair during admission. Patient was noted postoperatively to have bilateral incarcerated inguinal hernias and underwent the repair without complications. Patient's creatinine returned to normal after IV fluid resuscitation. Patient is felt to have received maximal hospital benefit and will be discharged home with antibiotics of Levaquin for the enteritis. Dedicated discharge time 32 minutes Disposition: 30 STILL A PATIENT Final Discharge Diagnosis (Prints w/discharge instructions): large right inguinal hernia, abdominal pain, enteritis, sepsis, acute kidney injury secondary to vasomotor nephropathy, hyperkalemia, bilateral inguinal hernia with chronic incarcerated. Core Measure Documentation - Palliative Care Palliative Care/ Comfort Measures: Not Applicable - Core Measures Any of the following diagnoses?: none Exam - Constitutional Vitals: Temp Pulse Resp BP Pulse Ox 98.2 F 88 18 108/53 98 11/30/21 20:59 11/30/21 20:59 12/01/21 06:03 11/30/21 20:59 11/30/21 22:00 General appearance: Present: no acute distress, well-nourished - EENT Eyes: Present: PERRL ENT: hearing intact, clear oral mucosa - Neck Neck: Present: supple, normal ROM - Respiratory Respiratory effort: normal Respiratory: bilateral: CTA - Cardiovascular Heart Sounds: Present: S1 & S2. Absent: rub, click - Extremities Extremities: pulses symmetrical, No edema Peripheral Pulses: within normal limits - Abdominal General gastrointestinal: Present: soft, non-tender, non-distended, normal bowel sounds Male genitourinary: Present: normal - Integumentary Integumentary: Present: clear, warm, dry - Musculoskeletal Musculoskeletal: gait normal, strength equal bilaterally - Psychiatric Psychiatric: appropriate mood/affect, intact judgment & insight - Neurologic Neurologic: CNII-XII intact, moves all extremities Plan Activity: advance as tolerated Weight Bearing Status: Weight Bear as Tolerated Diet: regular Wound: per your surgeon's advice Follow up with: UVALDO PICHARDO DO [Staff Physician] - 14 Days PRIMARY CARE, [Primary Care Provider] - 3-5 Days Prescriptions: levoFLOXacin [Levaquin TAB] 500 mg PO QDAY #7 oxyCODONE /ACETAMINOPHEN [Percocet 5/325 mg] 1 tab PO Q4H PRN #10 tablet PRN Reason: Pain, Moderate (4-6)
[2021-12-01] MEDS: oxyCODONE /ACETAMINOPHEN 5-325MG TAB PO PRN ×2 (09:19→17:15)
[2021-12-01] MEDS: GABAPENTIN 300 MG CAP PO SCH ×2 (09:22→22:17)
--- NOTE | 2021-12-01 11:29 | Progress Note ---
Assessment and Plan 61-year-old male status post robotic assisted bilateral inguinal hernia repair with mesh, POD 1 Plan: 1. Adv diet as naresh 2. dc IVF 3. PO pain medication as needed 4. scrotal support 5. IS/Pulm toilet 6. Stable for dc from surgery standpoint. Post op instructions including avoiding heavy lifting or straining for 6 weeks, no smoking, etc. discussed with patient and also printed and placed on chart. Patient instructed to follow-up in surgery clinic in [address] Jhaveri Thank you. Please call with any questions or concerns. Subjective Date of service: 12/01/21 Narrative: Pt seen and examined. c/o incisional pain but states he feels much better after surgery. No f/c. Naresh diet. No n/v. Objective Vital Signs - 12hr 12/01/21 12/01/21 12/01/21 01:37 02:07 06:03 Respiratory 19 17 18 Rate O2 Sat by Pulse Oximetry 12/01/21 12/01/21 06:33 10:00 Respiratory 17 18 Rate O2 Sat by Pulse 98 Oximetry - General physical appearance Narrative Exam: Gen.: Awake, alert, oriented x3. No apparent distress ENT: Trachea midline. No lymphadenopathy. No scleral icterus or conjunctival pallor CV: S1, S2 present Respiratory: No audible wheezes Abdomen: Soft, nondistended, mild incisional TTP -appropriate. Incisions are clean, dry, intact. no rebound, rigidity, guarding. No inguinal or scrotal swelling. Scrotal support in place. Extremities: No clubbing, cyanosis, edema - Labs 12/01/21 05:30 12/01/21 05:30 Diabetes panel 12/01/21 Range/Units 05:30 Sodium 133 L (137-145) mmol/L Potassium 4.0 (3.6-5.0) mmol/L Chloride 98.6 (98-107) mmol/L Carbon Dioxide 21 L (22-30) mmol/L BUN 20 (9-20) mg/dL Creatinine 1.2 (0.8-1.3) mg/dL Glucose 95 (75-100) mg/dL Calcium 7.9 L (8.4-10.2) mg/dL Calcium panel 12/01/21 Range/Units 05:30 Calcium 7.9 L (8.4-10.2) mg/dL Pituitary panel 12/01/21 Range/Units 05:30 Sodium 133 L (137-145) mmol/L Potassium 4.0 (3.6-5.0) mmol/L Chloride 98.6 (98-107) mmol/L Carbon Dioxide 21 L (22-30) mmol/L BUN 20 (9-20) mg/dL Creatinine 1.2 (0.8-1.3) mg/dL Glucose 95 (75-100) mg/dL Calcium 7.9 L (8.4-10.2) mg/dL Adrenal panel 12/01/21 Range/Units 05:30 Sodium 133 L (137-145) mmol/L Potassium 4.0 (3.6-5.0) mmol/L Chloride 98.6 (98-107) mmol/L Carbon Dioxide 21 L (22-30) mmol/L BUN 20 (9-20) mg/dL Creatinine 1.2 (0.8-1.3) mg/dL Glucose 95 (75-100) mg/dL Calcium 7.9 L (8.4-10.2) mg/dL
--- NOTE | 2021-12-01 21:28 | Cat Scan Report ---
CTA CHEST WITH CONTRAST INDICATION / CLINICAL INFORMATION: LOW O2 SATURATION. TECHNIQUE: Axial CT images were obtained through the chest after injection of IV contrast. 3 plane SC P and/or 3D reconstructions were produced. All CT scans at this location are performed using CT dose reduction for ALARA by means of automated exposure control. COMPARISON: None available. FINDINGS: PULMONARY EMBOLUS: None. THORACIC AORTA: No significant abnormality. HEART: No acute findings. CORONARY ARTERY CALCIFICATION: Present -- Mild. MEDIASTINUM / MARTINEZ: No significant abnormality. PLEURA: No pleural effusion. No pneumothorax. LUNGS: No acute air space or interstitial disease. Mild bibasilar subsegmental atelectasis. Mild emph ysema. ADDITIONAL FINDINGS: None. UPPER ABDOMEN: No acute findings. SKELETAL STRUCTURES: No significant osseous abnormality. IMPRESSION: 1. No CT evidence for pulmonary embolism. 2. No acute findings. Signer Name: Seng Sawyre MD Signed: 12/01/2021 9:24 PM Workstation Name: [id number]
[2021-12-02] MEDS: PIPERACIL/TAZOBACTA 4.5/NS 100 4.5 GM/100 ML VIAL IV SCH ×3 (01:33→16:32)
[2021-12-02] MEDS: oxyCODONE /ACETAMINOPHEN 5-325MG TAB PO PRN (01:34)
[2021-12-02] MEDS: HEPARIN 5,000 UNIT/1 ML VIAL SUB-Q SCH ×3 (06:13→21:52)
[2021-12-02] MEDS: MORPHINE 2 MG/1 ML INJ IV PRN ×4 (06:14→19:49)
--- NOTE | 2021-12-02 09:17 | Progress Note ---
Assessment and Plan Assessment and plan: 61-year-old male seen in the emergency room today complaining of scrotal swelling. Patient has known history of right-sided inguinal/scrotal hernia. He is usually able to reduce it however he has had difficulty reducing it today and has also been having pain. Swelling has been getting progressively worse which prompted visit to the emergency room. CT of the abdomen and pelvis reveals probable mild proximal enteritis, large right inguinal hernia that contains multiple loops of distal small bowel. Large right inguinal hernia Abdominal pain Enteritis Acute kidney injury. Baseline creatinine 0.7 in 2018 Hypokalemia. Resolved Sepsis. Present on admission. Patient meets criteria given the leukocytosis, tachycardia and diagnosis of enteritis 11/30/2021. Continue IV fluid hydration. Acute kidney injury is secondary to vasomotor nephropathy/dehydration. Continue antiemetics and pain control. Surgery consulted and to repair hernia this morning. No radiographic evidence of obstruction or strangulation. Patient does have sepsis secondary to enteritis as seen on CT scan. We will continue IV antibiotics. 12/01/2021. Patient was awaiting for discharge home but developed hypoxia prior to leaving. Patient was noted to have desaturation to 83% and elevated D-dimer. CTA of chest was obtained and found to be negative. History Interval history: No new issues overnight Hospitalist Physical - Constitutional Vitals: Temp Pulse Resp BP Pulse Ox 98.2 F 86 17 119/66 93 12/01/21 22:23 12/01/21 22:23 12/02/21 06:44 12/01/21 22:23 12/02/21 08:00 General appearance: Present: no acute distress, well-nourished - EENT Eyes: Present: PERRL, EOM intact ENT: hearing intact, clear oral mucosa, dentition normal - Neck Neck: Present: supple, normal ROM - Respiratory Respiratory effort: normal Respiratory: bilateral: CTA - Cardiovascular Rhythm: regular Heart Sounds: Present: S1 & S2. Absent: gallop, rub - Extremities Extremities: no ischemia, No edema, Full ROM - Abdominal General gastrointestinal: soft, non-tender, non-distended, normal bowel sounds - Integumentary Integumentary: Present: clear, warm, dry - Neurologic Neurologic: CNII-XII intact, moves all extremities Results - Labs CBC & Chem 7: 12/01/21 05:30 12/01/21 05:30 Labs: Laboratory Last Values WBC 14.0 K/mm3 (4.5-11.0) H 12/01/21 05:30 RBC 2.50 M/mm3 (3.65-5.03) L 12/01/21 05:30 Hgb 7.3 gm/dl (11.8-15.2) L 12/01/21 05:30 Hct 23.1 % (35.5-45.6) L 12/01/21 05:30 MCV 92 fl (84-94) 12/01/21 05:30 MCH 29 pg (28-32) 12/01/21 05:30 MCHC 32 % (32-34) 12/01/21 05:30 RDW 16.4 % (13.2-15.2) H 12/01/21 05:30 Plt Count 548 K/mm3 (140-440) H 12/01/21 05:30 Lymph % (Auto) 7.4 % (13.4-35.0) L 12/01/21 05:30 Orange % (Auto) 5.7 % (0.0-7.3) 12/01/21 05:30 Eos % (Auto) 0.0 % (0.0-4.3) 12/01/21 05:30 Baso % (Auto) 0.1 % (0.0-1.8) 12/01/21 05:30 Lymph # (Auto) 1.0 K/mm3 (1.2-5.4) L 12/01/21 05:30 Orange # (Auto) 0.8 K/mm3 (0.0-0.8) 12/01/21 05:30 Eos # (Auto) 0.0 K/mm3 (0.0-0.4) 12/01/21 05:30 Baso # (Auto) 0.0 K/mm3 (0.0-0.1) 12/01/21 05:30 Seg Neutrophils % 86.8 % (40.0-70.0) H 12/01/21 05:30 Seg Neutrophils # 12.2 K/mm3 (1.8-7.7) H 12/01/21 05:30 PT 13.3 Sec. (12.2-14.9) 11/29/21 22:26 INR 0.92 (0.87-1.13) 11/29/21 22:26 APTT 26.9 Sec. (24.2-36.6) 11/29/21 22:26 D-Dimer 1046.03 ng/mlDDU (0-234) H 12/01/21 20:55 ABG pH 7.449 (7.320-7.450) 12/01/21 21:24 POC ABG pCO2 34.1 mmHg (32.0-48.0) 12/01/21 21:24 POC ABG pO2 51.0 mmHg (83-108) L 12/01/21 21:24 POC ABG HCO3 23.1 12/01/21 21:24 ABG O2 Saturation 87.6 (0-100) 12/01/21 21:24 POC ABG Base Excess -0.7 12/01/21 21:24 ABG Hemoglobin 8.0 (12.0-17.5) L 12/01/21 21:24 ABG Oxyhemoglobin 86.6 (94-98) L 12/01/21 21:24 ABG Methemoglobin 0.3 (0.0-1.5) 12/01/21 21:24 Carboxyhemoglobin 0.8 (0.5-1.5) 12/01/21 21:24 FiO2 % 28 12/01/21 21:24 Sodium 133 mmol/L (137-145) L 12/01/21 05:30 Potassium 4.0 mmol/L (3.6-5.0) 12/01/21 05:30 Chloride 98.6 mmol/L (98-107) 12/01/21 05:30 Carbon Dioxide 21 mmol/L (22-30) L 12/01/21 05:30 Anion Gap 17 mmol/L 12/01/21 05:30 BUN 20 mg/dL (9-20) 12/01/21 05:30 Creatinine 1.2 mg/dL (0.8-1.3) 12/01/21 05:30 Estimated GFR > 60 ml/min 12/01/21 05:30 BUN/Creatinine Ratio 17 % 12/01/21 05:30 Glucose 95 mg/dL (75-100) 12/01/21 05:30 Hemoglobin A1c 5.4 % (4-6) 11/30/21 06:45 Lactic Acid 1.50 mmol/L (0.7-2.0) 11/30/21 01:08 Calcium 7.9 mg/dL (8.4-10.2) L 12/01/21 05:30 Magnesium 2.00 mg/dL (1.7-2.3) 11/29/21 22:26 Total Bilirubin 0.30 mg/dL (0.1-1.2) 11/29/21 21:22 AST 31 units/L (5-40) 11/29/21 21:22 ALT 24 units/L (7-56) 11/29/21 21:22 Alkaline Phosphatase 150 units/L (35-129) H 11/29/21 21:22 Total Creatine Kinase 58 units/L (55-170) 11/29/21 22:26 Total Protein 8.7 g/dL (6.3-8.2) H 11/29/21 21:22 Albumin 3.7 g/dL (3.9-5) L 11/29/21 21:22 Albumin/Globulin Ratio 0.7 % 11/29/21 21:22 Urine Color Yellow (Yellow) 11/30/21 03:24 Urine Turbidity Clear (Clear) 11/30/21 03:24 Urine pH 6.0 (5.0-7.0) 11/30/21 03:24 Ur Specific [place] 1.005 (1.003-1.030) 11/30/21 03:24 Urine Protein 30 mg/dl mg/dL (Negative) 11/30/21 03:24 Urine Glucose (UA) Negative mg/dL (Negative) 11/30/21 03:24 Urine Ketones Negative mg/dL (Negative) 11/30/21 03:24 Urine Blood Negative (Negative) 11/30/21 03:24 Urine Nitrite Negative (Negative) 11/30/21 03:24 Ur Reducing Substances Not Reportable 11/30/21 03:24 Urine Bilirubin Negative (Negative) 11/30/21 03:24 Urine Ictotest Not Reportable 11/30/21 03:24 Urine Urobilinogen < 2.0 mg/dL (<2.0) 11/30/21 03:24 Ur Leukocyte Esterase Negative (Negative) 11/30/21 03:24 Urine WBC (Auto) 4.0 /HPF (0.0-6.0) 11/30/21 03:24 Urine RBC (Auto) 1.0 /HPF (0.0-6.0) 11/30/21 03:24 U Epithel Cells (Auto) 1.0 /HPF (0-13.0) 11/30/21 03:24 Urine Mucus Few /HPF 11/30/21 03:24 Blood Type A POSITIVE 11/29/21 22:26 Antibody Screen Negative 11/29/21 22:26 Microbiology: Microbiology 11/29/21 01:10 Peripheral/Venous Blood Culture - Preliminary NO GROWTH AFTER 48 HOURS 11/30/21 01:10 Peripheral/Venous Blood Culture - Preliminary NO GROWTH AFTER 48 HOURS Barbosa/IV: Voiding Method Urinal Active Medications - Current Medications Current Medications: Generic Name Dose Route Start Last Admin Trade Name Freq PRN Reason Stop Dose Admin Acetaminophen 650 mg 11/30/21 02:49 Acetaminophen 325 Mg Tab PO Q4H PRN Pain MILD(1-3)/Fever >100.5/GUZMAN Gabapentin 300 mg 11/30/21 22:00 12/01/21 22:17 Gabapentin 300 Mg Cap PO 300 mg BID SOFIA Administration Heparin Sodium (Porcine) 5,000 unit 11/30/21 09:30 12/02/21 06:13 Heparin 5,000 Unit/1 Ml Vial SUB-Q 5,000 unit Q8HR SOFIA Administration Piperacillin Sod/Tazobactam Sod 4.5 gm in 100 mls @ 200 mls/hr 11/30/21 09:00 12/02/21 01:33 Zosyn/Ns 4.5gm/100ml IV 200 mls/hr Q8H SOFIA Administration Protocol Midazolam HCl 2 mg 11/30/21 14:31 11/30/21 14:20 Midazolam 2 Mg/2 Ml Inj IV 1 mg ONCE PRN Administration Agitation Morphine Sulfate 2 mg 11/30/21 02:49 12/02/21 06:14 Morphine 2 Mg/1 Ml Inj IV 2 mg Q4H PRN Administration Pain , Severe (7-10) Ondansetron HCl 4 mg 11/30/21 01:41 Ondansetron 4 Mg/2 Ml Inj IV Q8H PRN Nausea And Vomiting Oxycodone/Acetaminophen 1 tab 11/30/21 14:55 12/02/21 01:34 Oxycodone /Acetaminophen 5-325mg Tab PO 1 tab Q4H PRN Administration Pain, Moderate (4-6) Sodium Chloride 10 ml 11/30/21 10:00 12/01/21 22:16 Sodium Chloride 0.9% 10 Ml Flush Syringe IV 10 ml BID SOFIA Administration Sodium Chloride 10 ml 11/30/21 01:41 Sodium Chloride 0.9% 10 Ml Flush Syringe IV PRN PRN LINE FLUSH
--- NOTE | 2021-12-02 09:21 | Progress Note ---
Assessment and Plan Assessment and plan: 61-year-old male seen in the emergency room today complaining of scrotal swelling. Patient has known history of right-sided inguinal/scrotal hernia. He is usually able to reduce it however he has had difficulty reducing it today and has also been having pain. Swelling has been getting progressively worse which prompted visit to the emergency room. CT of the abdomen and pelvis reveals probable mild proximal enteritis, large right inguinal hernia that contains multiple loops of distal small bowel. Acute hypoxic respiratory failure large right inguinal hernia Abdominal pain Enteritis Acute kidney injury. Baseline creatinine 0.7 in 2018 Hypokalemia. Resolved Sepsis. Present on admission. Patient meets criteria given the leukocytosis, tachycardia and diagnosis of enteritis 11/30/2021. Continue IV fluid hydration. Acute kidney injury is secondary to vasomotor nephropathy/dehydration. Continue antiemetics and pain control. Surgery consulted and to repair hernia this morning. No radiographic evidence of obstruction or strangulation. Patient does have sepsis secondary to ent eritis as seen on CT scan. We will continue IV antibiotics. 12/01/2021. Patient was awaiting for discharge home but developed hypoxia prior to leaving. Patient was noted to have desaturation to 83% and elevated D-dimer. CTA of chest was obtained and found to be negative. 12/02/2021. Patient remains hypoxic and requiring salter nasal cannula at 10 L O2 with saturation of 93%. CTA and previous chest x-ray found to be negative. Unclear etiology.? COPD exacerbation. We will start IV steroids and bronchodilators. Consult pulmonary for further evaluation. History Interval history: No new issues overnight Hospitalist Physical - Constitutional Vitals: Temp Pulse Resp BP Pulse Ox 98.2 F 86 17 119/66 93 12/01/21 22:23 12/01/21 22:23 12/02/21 06:44 12/01/21 22:23 12/02/21 08:00 General appearance: Present: no acute distress, well-nourished - EENT Eyes: Present: PERRL, EOM intact ENT: hearing intact, clear oral mucosa, dentition normal - Neck Neck: Present: supple, normal ROM - Respiratory Respiratory effort: normal Respiratory: bilateral: CTA - Cardiovascular Rhythm: regular Heart Sounds: Present: S1 & S2. Absent: gallop, rub - Extremities Extremities: no ischemia, No edema, Full ROM - Abdominal General gastrointestinal: soft, non-tender, non-distended, normal bowel sounds - Integumentary Integumentary: Present: clear, warm, dry - Neurologic Neurologic: CNII-XII intact, moves all extremities Results - Labs CBC & Chem 7: 12/01/21 05:30 12/01/21 05:30 Labs: Laboratory Last Values WBC 14.0 K/mm3 (4.5-11.0) H 12/01/21 05:30 RBC 2.50 M/mm3 (3.65-5.03) L 12/01/21 05:30 Hgb 7.3 gm/dl (11.8-15.2) L 12/01/21 05:30 Hct 23.1 % (35.5-45.6) L 12/01/21 05:30 MCV 92 fl (84-94) 12/01/21 05:30 MCH 29 pg (28-32) 12/01/21 05:30 MCHC 32 % (32-34) 12/01/21 05:30 RDW 16.4 % (13.2-15.2) H 12/01/21 05:30 Plt Count 548 K/mm3 (140-440) H 12/01/21 05:30 Lymph % (Auto) 7.4 % (13.4-35.0) L 12/01/21 05:30 [place] % (Auto) 5.7 % (0.0-7.3) 12/01/21 05:30 Eos % (Auto) 0.0 % (0.0-4.3) 12/01/21 05:30 Baso % (Auto) 0.1 % (0.0-1.8) 12/01/21 05:30 Lymph # (Auto) 1.0 K/mm3 (1.2-5.4) L 12/01/21 05:30 [place] # (Auto) 0.8 K/mm3 (0.0-0.8) 12/01/21 05:30 Eos # (Auto) 0.0 K/mm3 (0.0-0.4) 12/01/21 05:30 Baso # (Auto) 0.0 K/mm3 (0.0-0.1) 12/01/21 05:30 Seg Neutrophils % 86.8 % (40.0-70.0) H 12/01/21 05:30 Seg Neutrophils # 12.2 K/mm3 (1.8-7.7) H 12/01/21 05:30 PT 13.3 Sec. (12.2-14.9) 11/29/21 22:26 INR 0.92 (0.87-1.13) 11/29/21 22:26 APTT 26.9 Sec. (24.2-36.6) 11/29/21 22:26 D-Dimer 1046.03 ng/mlDDU (0-234) H 12/01/21 20:55 ABG pH 7.449 (7.320-7.450) 12/01/21 21:24 POC ABG pCO2 34.1 mmHg (32.0-48.0) 12/01/21 21:24 POC ABG pO2 51.0 mmHg (83-108) L 12/01/21 21:24 POC ABG HCO3 23.1 12/01/21 21:24 ABG O2 Saturation 87.6 (0-100) 12/01/21 21:24 POC ABG Base Excess -0.7 12/01/21 21:24 ABG Hemoglobin 8.0 (12.0-17.5) L 12/01/21 21:24 ABG Oxyhemoglobin 86.6 (94-98) L 12/01/21 21:24 ABG Methemoglobin 0.3 (0.0-1.5) 12/01/21 21:24 Carboxyhemoglobin 0.8 (0.5-1.5) 12/01/21 21:24 FiO2 % 28 12/01/21 21:24 Sodium 133 mmol/L (137-145) L 12/01/21 05:30 Potassium 4.0 mmol/L (3.6-5.0) 12/01/21 05:30 Chloride 98.6 mmol/L (98-107) 12/01/21 05:30 Carbon Dioxide 21 mmol/L (22-30) L 12/01/21 05:30 Anion Gap 17 mmol/L 12/01/21 05:30 BUN 20 mg/dL (9-20) 12/01/21 05:30 Creatinine 1.2 mg/dL (0.8-1.3) 12/01/21 05:30 Estimated GFR > 60 ml/min 12/01/21 05:30 BUN/Creatinine Ratio 17 % 12/01/21 05:30 Glucose 95 mg/dL (75-100) 12/01/21 05:30 Hemoglobin A1c 5.4 % (4-6) 11/30/21 06:45 Lactic Acid 1.50 mmol/L (0.7-2.0) 11/30/21 01:08 Calcium 7.9 mg/dL (8.4-10.2) L 12/01/21 05:30 Magnesium 2.00 mg/dL (1.7-2.3) 11/29/21 22:26 Total Bilirubin 0.30 mg/dL (0.1-1.2) 11/29/21 21:22 AST 31 units/L (5-40) 11/29/21 21:22 ALT 24 units/L (7-56) 11/29/21 21:22 Alkaline Phosphatase 150 units/L (35-129) H 11/29/21 21:22 Total Creatine Kinase 58 units/L (55-170) 11/29/21 22:26 Total Protein 8.7 g/dL (6.3-8.2) H 11/29/21 21:22 Albumin 3.7 g/dL (3.9-5) L 11/29/21 21:22 Albumin/Globulin Ratio 0.7 % 11/29/21 21:22 Urine Color Yellow (Yellow) 11/30/21 03:24 Urine Turbidity Clear (Clear) 11/30/21 03:24 Urine pH 6.0 (5.0-7.0) 11/30/21 03:24 Ur Specific [place] 1.005 (1.003-1.030) 11/30/21 03:24 Urine Protein 30 mg/dl mg/dL (Negative) 11/30/21 03:24 Urine Glucose (UA) Negative mg/dL (Negative) 11/30/21 03:24 Urine Ketones Negative mg/dL (Negative) 11/30/21 03:24 Urine Blood Negative (Negative) 11/30/21 03:24 Urine Nitrite Negative (Negative) 11/30/21 03:24 Ur Reducing Substances Not Reportable 11/30/21 03:24 Urine Bilirubin Negative (Negative) 11/30/21 03:24 Urine Ictotest Not Reportable 11/30/21 03:24 Urine Urobilinogen < 2.0 mg/dL (<2.0) 11/30/21 03:24 Ur Leukocyte Esterase Negative (Negative) 11/30/21 03:24 Urine WBC (Auto) 4.0 /HPF (0.0-6.0) 11/30/21 03:24 Urine RBC (Auto) 1.0 /HPF (0.0-6.0) 11/30/21 03:24 U Epithel Cells (Auto) 1.0 /HPF (0-13.0) 11/30/21 03:24 Urine Mucus Few /HPF 11/30/21 03:24 Blood Type A POSITIVE 11/29/21 22:26 Antibody Screen Negative 11/29/21 22:26 Microbiology: Microbiology 11/29/21 01:10 Peripheral/Venous Blood Culture - Preliminary NO GROWTH AFTER 48 HOURS 11/30/21 01:10 Peripheral/Venous Blood Culture - Preliminary NO GROWTH AFTER 48 HOURS [place]/IV: Voiding Method Urinal Active Medications - Current Medications Current Medications: Generic Name Dose Route Start Last Admin Trade Name Freq PRN Reason Stop Dose Admin Acetaminophen 650 mg 11/30/21 02:49 Acetaminophen 325 Mg Tab PO Q4H PRN Pain MILD(1-3)/Fever >100.5/GUZMAN Gabapentin 300 mg 11/30/21 22:00 12/01/21 22:17 Gabapentin 300 Mg Cap PO 300 mg BID SOFIA Administration Heparin Sodium (Porcine) 5,000 unit 11/30/21 09:30 12/02/21 06:13 Heparin 5,000 Unit/1 Ml Vial SUB-Q 5,000 unit Q8HR SOFIA Administration Piperacillin Sod/Tazobactam Sod 4.5 gm in 100 mls @ 200 mls/hr 11/30/21 09:00 12/02/21 01:33 Zosyn/Ns 4.5gm/100ml IV 200 mls/hr Q8H SOFIA Administration Protocol Midazolam HCl 2 mg 11/30/21 14:31 11/30/21 14:20 Midazolam 2 Mg/2 Ml Inj IV 1 mg ONCE PRN Administration Agitation Morphine Sulfate 2 mg 11/30/21 02:49 12/02/21 06:14 Morphine 2 Mg/1 Ml Inj IV 2 mg Q4H PRN Administration Pain , Severe (7-10) Ondansetron HCl 4 mg 11/30/21 01:41 Ondansetron 4 Mg/2 Ml Inj IV Q8H PRN Nausea And Vomiting Oxycodone/Acetaminophen 1 tab 11/30/21 14:55 12/02/21 01:34 Oxycodone /Acetaminophen 5-325mg Tab PO 1 tab Q4H PRN Administration Pain, Moderate (4-6) Sodium Chloride 10 ml 11/30/21 10:00 12/01/21 22:16 Sodium Chloride 0.9% 10 Ml Flush Syringe IV 10 ml BID SOFIA Administration Sodium Chloride 10 ml 11/30/21 01:41 Sodium Chloride 0.9% 10 Ml Flush Syringe IV PRN PRN LINE FLUSH
[2021-12-02] MEDS: GABAPENTIN 300 MG CAP PO SCH ×2 (09:41→21:53)
[2021-12-02 09:50] LABS: BUN/Creatinine Ratio 18; Blood Urea Nitrogen 16 mg/dL (9-20); Hemolysis Index 1
[2021-12-02 10:27] LABS: Basophils # (Auto) 0.1 K/mm3 (0.0-0.1); Basophils % (Auto) 0.8 % (0.0-1.8); Eosinophils # (Auto) 0.1 K/mm3 (0.0-0.4); Eosinophils % (Auto) 1.2 % (0.0-4.3); Hemoglobin 7.5 gm/dl (11.8-15.2); Lymphocytes # (Auto) 2.4 K/mm3 (1.2-5.4); Lymphocytes % (Auto) 23.4 % (13.4-35.0); Mean Corpuscular HGB Conc 31 % (32-34); Mean Corpuscular Volume 93 fl (84-94); Monocytes # (Auto) 0.9 K/mm3 (0.0-0.8); Monocytes % (Auto) 8.5 % (0.0-7.3); Platelet Count 587 K/mm3 (140-440); Red Cell Distribution Width 16.7 % (13.2-15.2)
[2021-12-02] MEDS: methylPREDNISolone Sod Succinate 40 MG/1 ML INJ IV SCH ×2 (13:20→21:52)
--- NOTE | 2021-12-02 14:18 | Consultation ---
History of Present Illness Consult date: 12/02/21 Reason for consult: dyspnea, hypoxemia History of present illness: Mr. Rowe is a 61-year-old white male with who was admitted to the hospital with abdominal symptoms and right-sided inguinal hernia. Patient underwent hernia surgery 2 days ago. However he was noted to be hypoxic. And currently requiring supplemental oxygen up to 10 L. Patient has history of cigarette smoking until 2 years ago at 1 pack/day for all his adult life. Patient denied any alcohol abuse until last month month and a half has been drinking regularly.. He has no significant cough or chest pain. A CTA done today was negative for pulmonary embolism or any acute cardiopulmonary abnormalities. Because of the hypoxemia we have been consulted. Past History Past Medical History: other (chronic right inguinal hernia, chronic pain, neuropathy)) Past Surgical History: Other (L arm surgery, R great toe amputation) Social history: smoking (vape), alcohol abuse (1 pint of liquor daily), other (Meth use in the past) Medications and Allergies Allergies Allergy/AdvReac Type Severity Reaction Status Date / Time No Known Allergies Allergy Verified 11/30/21 10:10 Home Medications Medication Instructions Recorded Confirmed Last Taken Type Gabapentin 300 mg PO BID capsule 12/01/21 Unknown Rx levoFLOXacin [Levaquin TAB] 500 mg PO QDAY #7 12/01/21 Unknown Rx oxyCODONE /ACETAMINOPHEN [Percocet 1 tab PO Q4H PRN #10 tablet 12/01/21 Unknown Rx 5/325 mg] Active Meds: Active Medications Acetaminophen (Acetaminophen 325 Mg Tab) 650 mg PO Q4H PRN PRN Reason: Pain MILD(1-3)/Fever >100.5/GUZMAN Albuterol (Albuterol 2.5 Mg/3 Ml Nebu) 2.5 mg IH Q6HRT SOFIA Gabapentin (Gabapentin 300 Mg Cap) 300 mg PO BID SOFIA Last Admin: 12/02/21 09:41 Dose: 300 mg Heparin Sodium (Porcine) (Heparin 5,000 Unit/1 Ml Vial) 5,000 unit SUB-Q Q8HR SOFIA Last Admin: 12/02/21 13:20 Dose: 5,000 unit Piperacillin Sod/Tazobactam Sod (Zosyn/Ns 4.5gm/100ml) 4.5 gm in 100 mls @ 200 mls/hr IV Q8H SOFIA; Protocol Last Admin: 12/02/21 09:41 Dose: 200 mls/hr Methylprednisolone Sodium Succinate (Methylprednisolone Sod Succinate 40 Mg/1 Ml Inj) 40 mg IV Q8HR [facility] Last Admin: 12/02/21 13:20 Dose: 40 mg Midazolam HCl (Midazolam 2 Mg/2 Ml Inj) 2 mg IV ONCE PRN PRN Reason: Agitation Last Admin: 11/30/21 14:20 Dose: 1 mg Morphine Sulfate (Morphine 2 Mg/1 Ml Inj) 2 mg IV Q4H PRN PRN Reason: Pain , Severe (7-10) Last Admin: 12/02/21 10:53 Dose: 2 mg Ondansetron HCl (Ondansetron 4 Mg/2 Ml Inj) 4 mg IV Q8H PRN PRN Reason: Nausea And Vomiting Oxycodone/Acetaminophen (Oxycodone /Acetaminophen 5-325mg Tab) 1 tab PO Q4H PRN PRN Reason: Pain, Moderate (4-6) Last Admin: 12/02/21 01:34 Dose: 1 tab Sodium Chloride (Sodium Chloride 0.9% 10 Ml Flush Syringe) 10 ml IV BID [facility] Last Admin: 12/02/21 09:41 Dose: 10 ml Sodium Chloride (Sodium Chloride 0.9% 10 Ml Flush Syringe) 10 ml IV PRN PRN PRN Reason: LINE FLUSH Review of Systems All systems: negative Cardiovascular: shortness of breath Respiratory: shortness of breath Gastrointestinal: abdominal pain, other (Surgical site pain) Musculoskeletal: other (Has surgery on the right toe 2 months ago complaining of some discomfort) Physical Examination Vital signs: Vital Signs Resp 20 11/29/21 21:26 General appearance: no acute distress, alert ENT: other (Poor dentition) Neck: no JVD Ascultation: Bilateral: diminished breath sounds Cardiovascular: regular rate and rhythm Gastrointestinal: normoactive bowel sounds, tender (Mildly tender near the incision sites), non-distended Extremities: edema (Both lower extremities) Gait: other (Right big toe have somewhat poorly healing old surgical incision) normal mental status, non-focal exam mood appropriate Results - Laboratory Findings CBC and BMP: 12/02/21 09:22 12/02/21 09:22 ABG ABG pH 7.449 (7.320-7.450) 12/01/21 21:24 POC ABG pCO2 34.1 mmHg (32.0-48.0) 12/01/21 21:24 POC ABG pO2 51.0 mmHg (83-108) L 12/01/21 21:24 POC ABG HCO3 23.1 12/01/21 21:24 ABG O2 Saturation 87.6 (0-100) 12/01/21 21:24 PT/INR, D-dimer PT 13.3 Sec. (12.2-14.9) 11/29/21 22:26 INR 0.92 (0.87-1.13) 11/29/21 22:26 D-Dimer 1046.03 ng/mlDDU (0-234) H 12/01/21 20:55 Abnormal lab findings: Abnormal Labs 11/29/21 11/29/21 11/29/21 21:22 21:22 22:26 WBC 18.1 H RBC 3.55 L Hgb 10.2 L Hct 32.9 L MCHC 31 L RDW 16.3 H Plt Count 775 H Lymph % (Auto) 7.3 L [place] % (Auto) Lymph # (Auto) [place] # (Auto) 0.9 H Seg Neutrophils % 87.2 H Seg Neutrophils # 15.8 H D-Dimer POC ABG pO2 ABG Hemoglobin ABG Oxyhemoglobin Sodium 132 L Potassium 3.4 L Chloride 93.4 L Carbon Dioxide 20 L BUN Creatinine 1.9 H Glucose 159 H Lactic Acid 3.10 H* Calcium Alkaline Phosphatase 150 H Total Protein 8.7 H Albumin 3.7 L 11/30/21 11/30/21 12/01/21 06:45 06:45 05:30 WBC 15.1 H 14.0 H RBC 2.93 L 2.50 L Hgb 8.5 L 7.3 L Hct 26.9 L D 23.1 L MCHC RDW 16.7 H 16.4 H Plt Count 598 H 548 H Lymph % (Auto) 7.4 L [place] % (Auto) Lymph # (Auto) 1.0 L [place] # (Auto) Seg Neutrophils % 86.8 H Seg Neutrophils # 12.2 H D-Dimer POC ABG pO2 ABG Hemoglobin ABG Oxyhemoglobin Sodium Potassium Chloride Carbon Dioxide BUN 21 H Creatinine 1.7 H Glucose Lactic Acid Calcium 7.9 L Alkaline Phosphatase Total Protein Albumin 12/01/21 12/01/21 12/01/21 05:30 20:55 21:24 WBC RBC Hgb Hct MCHC RDW Plt Count Lymph % (Auto) [place] % (Auto) Lymph # (Auto) [place] # (Auto) Seg Neutrophils % Seg Neutrophils # D-Dimer 1046.03 H POC ABG pO2 51.0 L ABG Hemoglobin 8.0 L ABG Oxyhemoglobin 86.6 L Sodium 133 L Potassium Chloride Carbon Dioxide 21 L BUN Creatinine Glucose Lactic Acid Calcium 7.9 L Alkaline Phosphatase Total Protein Albumin 12/02/21 12/02/21 09:22 09:22 WBC RBC 2.60 L Hgb 7.5 L Hct 24.0 L MCHC 31 L RDW 16.7 H Plt Count 587 H Lymph % (Auto) [place] % (Auto) 8.5 H Lymph # (Auto) [place] # (Auto) 0.9 H Seg Neutrophils % Seg Neutrophils # D-Dimer POC ABG pO2 ABG Hemoglobin ABG Oxyhemoglobin Sodium 131 L Potassium 3.5 L Chloride Carbon Dioxide 21 L BUN Creatinine Glucose Lactic Acid Calcium 8.0 L Alkaline Phosphatase Total Protein Albumin - Diagnostic Findings CT scan - chest: image reviewed (Negative for pulmonary embolism or any acute cardiopulmonary abnormalities) Assessment and Plan Impression: Acute hypoxic respiratory failure etiology unclear rule out COPD exacerbation. No evidence of pulmonary embolism on CTA. Rule out sepsis etc. S/p laparoscopic inguinal hernia repair. History of cigarette smoking in the past rule out COPD with exacerbation Recommendation: Check lactic acid/procalcitonin. Continue with inhaled bronchodilators Check arterial blood gases. Continue with supplemental oxygen. May consider steroids for possible COPD. We will closely follow him.
[2021-12-02] MEDS: ALBUTEROL 2.5 MG/3 ML NEBU IH SCH ×2 (15:18→21:09)
[2021-12-02 16:30] LABS: ABG Base Excess -0.1 mmol/L (-2.0-3.0); ABG Methemoglobin 0.4 % (0.0-1.5); ABG Oxygen Saturation 94.3 % (95.0-99.0); ABG PCO2 36.3 mm Hg; ABG PH 7.438 pH Units (7.350-7.450); ABG PO2 63.3 mm Hg (80.0-90.0)
[2021-12-03] MEDS: MORPHINE 2 MG/1 ML INJ IV PRN ×4 (00:21→19:59)
[2021-12-03] MEDS: PIPERACIL/TAZOBACTA 4.5/NS 100 4.5 GM/100 ML VIAL IV SCH ×3 (00:24→17:11)
[2021-12-03] MEDS: ALBUTEROL 2.5 MG/3 ML NEBU IH SCH ×4 (01:16→20:22)
[2021-12-03] MEDS: oxyCODONE /ACETAMINOPHEN 5-325MG TAB PO PRN ×3 (03:55→17:11)
[2021-12-03] MEDS: HEPARIN 5,000 UNIT/1 ML VIAL SUB-Q SCH ×3 (06:01→21:35)
[2021-12-03] MEDS: methylPREDNISolone Sod Succinate 40 MG/1 ML INJ IV SCH ×3 (06:02→21:36)
[2021-12-03 06:12] LABS: Hematocrit 23.8 % (35.5-45.6); Hemoglobin 7.9 gm/dl (11.8-15.2); Mean Corpuscular HGB Conc 33 % (32-34); Mean Corpuscular Volume 91 fl (84-94); Platelet Count 562 K/mm3 (140-440); Red Blood Count 2.61 M/mm3 (3.65-5.03); Red Cell Distribution Width 16.7 % (13.2-15.2)
[2021-12-03 06:26] LABS: BUN/Creatinine Ratio 16; Blood Urea Nitrogen 14 mg/dL (9-20); Calcium 8.6 mg/dL (8.4-10.2); Hemolysis Index 0
[2021-12-03 06:57] LABS: Anisocytosis 1+; Basophils % (Manual) 0 % (0.0-1.8); Eosinophils % (Manual) 0 % (0.0-4.3); Platelet Estimate Consistent w Auto; Total Cells Counted 100
--- NOTE | 2021-12-03 09:04 | Progress Note ---
Assessment and Plan Assessment and plan: 61-year-old male seen in the emergency room today complaining of scrotal swelling. Patient has known history of right-sided inguinal/scrotal hernia. He is usually able to reduce it however he has had difficulty reducing it today and has also been having pain. Swelling has been getting progressively worse which prompted visit to the emergency room. CT of the abdomen and pelvis reveals probable mild proximal enteritis, large right inguinal hernia that contains multiple loops of distal small bowel. Acute hypoxic respiratory failure Acute COPD exacerbation large right inguinal hernia Abdominal pain Enteritis Acute kidney injury. Baseline creatinine 0.7 in 2018 Hypokalemia. Resolved Sepsis. Present on admission. Patient meets criteria given the leukocytosis, tachycardia and diagnosis of enteritis Tobacco abuse. Patient with [id number] history Costochondritis 11/30/2021. Continue IV fluid hydration. Acute kidney injury is secondary to vasomotor nephropathy/dehydration. Continue antiemetics and pain control. Surgery consulted and to repair hernia this morning. No radiographic evidence of obstruction or strangulation. Patient does have sepsis secondary to enteritis as seen on CT scan. We will continue IV antibiotics. 12/01/2021. Patient was awaiting for discharge home but developed hypoxia prior to leaving. Patient was noted to have desaturation to 83% and elevated D-dimer. CTA of chest was obtained and found to be negative. 12/02/2021. Patient remains hypoxic and requiring salter nasal cannula at 10 L O2 with saturation of 93%. CTA and previous chest x-ray found to be negative. Unclear etiology.? COPD exacerbation. We will start IV steroids and bro nchodilators. Consult pulmonary for further evaluation. 12/03/2021. Patient complained of left-sided chest pain this morning. EKG unremarkable. Pain is reproducible with palpation. Patient still requiring significant amount of oxygen with 8 L per salter nasal cannula. Patient does report [id number] history but no diagnosis of COPD. I suspect patient has COPD exacerbation and we will continue with steroids and bronchodilators/nebulizers. History Interval history: No new issues overnight Hospitalist Physical - Constitutional Vitals: Temp Pulse Resp BP Pulse Ox 98.6 F 87 20 130/50 97 12/03/21 06:04 12/03/21 08:20 12/03/21 08:20 12/03/21 06:04 03/06/22 08:23 General appearance: Present: no acute distress, well-nourished - EENT Eyes: Present: PERRL, EOM intact ENT: hearing intact, clear oral mucosa, dentition normal - Neck Neck: Present: supple, normal ROM - Respiratory Respiratory effort: normal Respiratory: bilateral: CTA - Cardiovascular Rhythm: regular Heart Sounds: Present: S1 & S2. Absent: gallop, rub - Extremities Extremities: no ischemia, No edema, Full ROM - Abdominal General gastrointestinal: soft, non-tender, non-distended, normal bowel sounds - Integumentary Integumentary: Present: clear, warm, dry - Neurologic Neurologic: CNII-XII intact, moves all extremities Results - Labs CBC & Chem 7: 12/03/21 05:17 12/03/21 05:17 Labs: Laboratory Last Values WBC 10.4 K/mm3 (4.5-11.0) 12/03/21 05:17 RBC 2.61 M/mm3 (3.65-5.03) L 12/03/21 05:17 Hgb 7.9 gm/dl (11.8-15.2) L 12/03/21 05:17 Hct 23.8 % (35.5-45.6) L 12/03/21 05:17 MCV 91 fl (84-94) 12/03/21 05:17 MCH 31 pg (28-32) 12/03/21 05:17 MCHC 33 % (32-34) 12/03/21 05:17 RDW 16.7 % (13.2-15.2) H 12/03/21 05:17 Plt Count 562 K/mm3 (140-440) H 12/03/21 05:17 Lymph % (Auto) 23.4 % (13.4-35.0) 12/02/21 09:22 [place] % (Auto) 8.5 % (0.0-7.3) H 12/02/21 09:22 Eos % (Auto) 1.2 % (0.0-4.3) 12/02/21 09:22 Baso % (Auto) 0.8 % (0.0-1.8) 12/02/21 09:22 Lymph # (Auto) 2.4 K/mm3 (1.2-5.4) 12/02/21 09:22 [place] # (Auto) 0.9 K/mm3 (0.0-0.8) H 12/02/21 09:22 Eos # (Auto) 0.1 K/mm3 (0.0-0.4) 12/02/21 09:22 Baso # (Auto) 0.1 K/mm3 (0.0-0.1) 12/02/21 09:22 Add Manual Diff Complete 12/03/21 05:17 Total Counted 100 12/03/21 05:17 Seg Neutrophils % Form Worker 12/03/21 05:17 Seg Neuts % (Manual) 96.0 % (40.0-70.0) H 12/03/21 05:17 Band Neutrophils % 0 % 12/03/21 05:17 Lymphocytes % (Manual) 2.0 % (13.4-35.0) L 12/03/21 05:17 Reactive Lymphs % (Man) 0 % 12/03/21 05:17 Monocytes % (Manual) 2.0 % (0.0-7.3) 12/03/21 05:17 Eosinophils % (Manual) 0 % (0.0-4.3) 12/03/21 05:17 Basophils % (Manual) 0 % (0.0-1.8) 12/03/21 05:17 Metamyelocytes % 0 % 12/03/21 05:17 Myelocytes % 0 % 12/03/21 05:17 Promyelocytes % 0 % 12/03/21 05:17 Blast Cells % 0 % 12/03/21 05:17 Nucleated RBC % Not Reportable 12/03/21 05:17 Seg Neutrophils # 6.8 K/mm3 (1.8-7.7) 12/02/21 09:22 Seg Neutrophils # Man 10.0 K/mm3 (1.8-7.7) H 12/03/21 05:17 Band Neutrophils # 0.0 K/mm3 12/03/21 05:17 Lymphocytes # (Manual) 0.2 K/mm3 (1.2-5.4) L 12/03/21 05:17 Abs React Lymphs (Man) 0.0 K/mm3 12/03/21 05:17 Monocytes # (Manual) 0.2 K/mm3 (0.0-0.8) 12/03/21 05:17 Eosinophils # (Manual) 0.0 K/mm3 (0.0-0.4) 12/03/21 05:17 Basophils # (Manual) 0.0 K/mm3 (0.0-0.1) 12/03/21 05:17 Metamyelocytes # 0.0 K/mm3 12/03/21 05:17 Myelocytes # 0.0 K/mm3 12/03/21 05:17 Promyelocytes # 0.0 K/mm3 12/03/21 05:17 Blast Cells # 0.0 K/mm3 12/03/21 05:17 WBC Morphology Not Reportable 12/03/21 05:17 Hypersegmented Neuts Not Reportable 12/03/21 05:17 Hyposegmented Neuts Not Reportable 12/03/21 05:17 Hypogranular Neuts Not Reportable 12/03/21 05:17 Smudge Cells Not Reportable 12/03/21 05:17 Toxic Granulation Not Reportable 12/03/21 05:17 Toxic Vacuolation Not Reportable 12/03/21 05:17 Dohle Bodies Not Reportable 12/03/21 05:17 Pelger-Huet Anomaly Not Reportable 12/03/21 05:17 Manpreet Rods Not Reportable 12/03/21 05:17 Platelet Estimate Consistent w auto 12/03/21 05:17 Clumped Platelets Not Reportable 12/03/21 05:17 Plt Clumps, EDTA Not Reportable 12/03/21 05:17 Large Platelets Not Reportable 12/03/21 05:17 Giant Platelets Not Reportable 12/03/21 05:17 Platelet Satelliting Not Reportable 12/03/21 05:17 Plt Morphology Comment Not Reportable 12/03/21 05:17 RBC Morphology Not Reportable 12/03/21 05:17 Dimorphic RBCs Not Reportable 12/03/21 05:17 Polychromasia Not Reportable 12/03/21 05:17 Hypochromasia Not Reportable 12/03/21 05:17 Poikilocytosis Not Reportable 12/03/21 05:17 Anisocytosis 1+ 12/03/21 05:17 Microcytosis Not Reportable 12/03/21 05:17 Macrocytosis Not Reportable 12/03/21 05:17 Spherocytes Not Reportable 12/03/21 05:17 Pappenheimer Bodies Not Reportable 12/03/21 05:17 Sickle Cells Not Reportable 12/03/21 05:17 Target Cells Not Reportable 12/03/21 05:17 Tear Drop Cells Not Reportable 12/03/21 05:17 Ovalocytes Not Reportable 12/03/21 05:17 Helmet Cells Not Reportable 12/03/21 05:17 [place] Bodies Not Reportable 12/03/21 05:17 [place] Rings Not Reportable 12/03/21 05:17 Ingrid Cells Not Reportable 12/03/21 05:17 Bite Cells Not Reportable 12/03/21 05:17 Crenated Cell Not Reportable 12/03/21 05:17 Elliptocytes Not Reportable 12/03/21 05:17 Acanthocytes (Spur) Not Reportable 12/03/21 05:17 Rouleaux Not Reportable 12/03/21 05:17 Hemoglobin C Crystals Not Reportable 12/03/21 05:17 Schistocytes Not Reportable 12/03/21 05:17 Malaria parasites Not Reportable 12/03/21 05:17 Ruperto Bodies Not Reportable 12/03/21 05:17 Hem Pathologist Commnt No 12/03/21 05:17 PT 13.3 Sec. (12.2-14.9) 11/29/21 22:26 INR 0.92 (0.87-1.13) 11/29/21 22:26 APTT 26.9 Sec. (24.2-36.6) 11/29/21 22:26 D-Dimer 1046.03 ng/mlDDU (0-234) H 12/01/21 20:55 ABG pH 7.438 pH Units (7.350-7.450) 12/02/21 15:35 POC ABG pCO2 34.1 mmHg (32.0-48.0) 12/01/21 21:24 ABG pCO2 36.3 mm Hg 12/02/21 15:35 POC ABG pO2 51.0 mmHg (83-108) L 12/01/21 21:24 ABG pO2 63.3 mm Hg (80.0-90.0) L 12/02/21 15:35 POC ABG HCO3 23.1 12/01/21 21:24 ABG HCO3 24.0 mmol/L (20.0-26.0) 12/02/21 15:35 ABG O2 Saturation 94.3 % (95.0-99.0) L 12/02/21 15:35 ABG O2 Content 10.2 (0.0-44) 12/02/21 15:35 POC ABG Base Excess -0.7 12/01/21 21:24 ABG Base Excess -0.1 mmol/L (-2.0-3.0) 12/02/21 15:35 ABG Hemoglobin 7.8 gm/dl (14.0-18.0) L 12/02/21 15:35 ABG Oxyhemoglobin 86.6 (94-98) L 12/01/21 21:24 ABG Carboxyhemoglobin 1.5 % (0.0-5.0) 12/02/21 15:35 ABG Methemoglobin 0.4 % (0.0-1.5) 12/02/21 15:35 Oxyhemoglobin 92.5 % (95.0-99.0) L 12/02/21 15:35 Carboxyhemoglobin 0.8 (0.5-1.5) 12/01/21 21:24 FiO2 52 % 12/02/21 15:35 FiO2 % 28 12/01/21 21:24 Sodium 135 mmol/L (137-145) L 12/03/21 05:17 Potassium 4.2 mmol/L (3.6-5.0) 12/03/21 05:17 Chloride 100.5 mmol/L (98-107) 12/03/21 05:17 Carbon Dioxide 22 mmol/L (22-30) 12/03/21 05:17 Anion Gap 17 mmol/L 12/03/21 05:17 BUN 14 mg/dL (9-20) 12/03/21 05:17 Creatinine 0.9 mg/dL (0.8-1.3) 12/03/21 05:17 Estimated GFR > 60 ml/min 12/03/21 05:17 BUN/Creatinine Ratio 16 % 12/03/21 05:17 Glucose 158 mg/dL (75-100) H 12/03/21 05:17 Hemoglobin A1c 5.4 % (4-6) 11/30/21 06:45 Lactic Acid 1.40 mmol/L (0.7-2.0) 12/02/21 14:57 Calcium 8.6 mg/dL (8.4-10.2) 12/03/21 05:17 Magnesium 2.00 mg/dL (1.7-2.3) 11/29/21 22:26 Total Bilirubin 0.30 mg/dL (0.1-1.2) 11/29/21 21:22 AST 31 units/L (5-40) 11/29/21 21:22 ALT 24 units/L (7-56) 11/29/21 21:22 Alkaline Phosphatase 150 units/L (35-129) H 11/29/21 21:22 Total Creatine Kinase 58 units/L (55-170) 11/29/21 22:26 Total Protein 8.7 g/dL (6.3-8.2) H 11/29/21 21:22 Albumin 3.7 g/dL (3.9-5) L 11/29/21 21:22 Albumin/Globulin Ratio 0.7 % 11/29/21 21:22 Urine Color Yellow (Yellow) 11/30/21 03:24 Urine Turbidity Clear (Clear) 11/30/21 03:24 Urine pH 6.0 (5.0-7.0) 11/30/21 03:24 Ur Specific [place] 1.005 (1.003-1.030) 11/30/21 03:24 Urine Protein 30 mg/dl mg/dL (Negative) 11/30/21 03:24 Urine Glucose (UA) Negative mg/dL (Negative) 11/30/21 03:24 Urine Ketones Negative mg/dL (Negative) 11/30/21 03:24 Urine Blood Negative (Negative) 11/30/21 03:24 Urine Nitrite Negative (Negative) 11/30/21 03:24 Ur Reducing Substances Not Reportable 11/30/21 03:24 Urine Bilirubin Negative (Negative) 11/30/21 03:24 Urine Ictotest Not Reportable 11/30/21 03:24 Urine Urobilinogen < 2.0 mg/dL (<2.0) 11/30/21 03:24 Ur Leukocyte Esterase Negative (Negative) 11/30/21 03:24 Urine WBC (Auto) 4.0 /HPF (0.0-6.0) 11/30/21 03:24 Urine RBC (Auto) 1.0 /HPF (0.0-6.0) 11/30/21 03:24 U Epithel Cells (Auto) 1.0 /HPF (0-13.0) 11/30/21 03:24 Urine Mucus Few /HPF 11/30/21 03:24 Coronavirus (PCR) Negative (Negative) 12/02/21 10:15 Blood Type A POSITIVE 11/29/21 22:26 Antibody Screen Negative 11/29/21 22:26 Microbiology: Microbiology 11/29/21 01:10 Peripheral/Venous Blood Culture - Preliminary NO GROWTH AFTER 72 HOURS 11/30/21 01:10 Peripheral/Venous Blood Culture - Preliminary NO GROWTH AFTER 72 HOURS [place]/IV: Voiding Method Urinal Active Medications - Current Medications Current Medications: Generic Name Dose Route Start Last Admin Trade Name Freq PRN Reason Stop Dose Admin Acetaminophen 650 mg 11/30/21 02:49 Acetaminophen 325 Mg Tab PO Q4H PRN Pain MILD(1-3)/Fever >100.5/GUZMAN Albuterol 2.5 mg 12/02/21 14:00 12/03/21 08:20 Albuterol 2.5 Mg/3 Ml Nebu IH 2.5 mg Q6HRT SOFIA Administration Gabapentin 300 mg 11/30/21 22:00 12/02/21 21:53 Gabapentin 300 Mg Cap PO 300 mg BID SOFIA Administration Heparin Sodium (Porcine) 5,000 unit 11/30/21 09:30 12/03/21 06:01 Heparin 5,000 Unit/1 Ml Vial SUB-Q 5,000 unit Q8HR SOFIA Administration Piperacillin Sod/Tazobactam Sod 4.5 gm in 100 mls @ 200 mls/hr 11/30/21 09:00 12/03/21 08:02 Zosyn/Ns 4.5gm/100ml IV 200 mls/hr Q8H SOFIA Administration Protocol Methylprednisolone Sodium Succinate 40 mg 12/02/21 14:00 12/03/21 06:02 Methylprednisolone Sod Succinate 40 Mg/1 Ml Inj IV 40 mg Q8HR SOFIA Administration Morphine Sulfate 2 mg 11/30/21 02:49 12/03/21 06:01 Morphine 2 Mg/1 Ml Inj IV 2 mg Q4H PRN Administration Pain , Severe (7-10) Ondansetron HCl 4 mg 11/30/21 01:41 Ondansetron 4 Mg/2 Ml Inj IV Q8H PRN Nausea And Vomiting Oxycodone/Acetaminophen 1 tab 11/30/21 14:55 12/03/21 03:55 Oxycodone /Acetaminophen 5-325mg Tab PO 1 tab Q4H PRN Administration Pain, Moderate (4-6) Sodium Chloride 10 ml 11/30/21 10:00 12/02/21 21:54 Sodium Chloride 0.9% 10 Ml Flush Syringe IV 10 ml BID SOFIA Administration Sodium Chloride 10 ml 11/30/21 01:41 Sodium Chloride 0.9% 10 Ml Flush Syringe IV PRN PRN LINE FLUSH
[2021-12-03] MEDS: GABAPENTIN 300 MG CAP PO SCH ×2 (09:13→21:36)
--- NOTE | 2021-12-03 11:56 | Electrocardiograph Report ---
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
--- NOTE | 2021-12-03 11:57 | Progress Note ---
Assessment and Plan Impression: Acute hypoxic respiratory failure etiology unclear rule out COPD exacerbation. No evidence of pulmonary embolism on CTA. Rule out sepsis etc. S/p laparoscopic inguinal hernia repair. History of cigarette smoking in the past rule out COPD with exacerbation No evidence of hypercarbia Recommendation: Check lactic acid/procalcitonin. Continue with inhaled bronchodilators Continue with supplemental oxygen. Wean FiO2 as tolerated maintaining O2 saturation more than 92% Continue with steroids for possible COPD. We will closely follow him. Subjective Date of service: 12/03/21 Interval history: Patient reports feeling better still having abdominal pain. Slightly more ambulatory. Breathing has also improved on steroids. Still on oxygen at 8 L saturation in high 90s Objective Vital Signs - 12hr 12/03/21 12/03/21 12/03/21 00:51 03:55 06:01 Temperature Pulse Rate Pulse Rate [ Anterior Bilateral Throughout] Respiratory 17 17 17 Rate Respiratory Rate [Anterior Bilateral Throughout] Blood Pressure [Right] O2 Sat by Pulse Oximetry 12/03/21 12/03/21 12/03/21 06:04 06:31 08:17 Temperature 98.6 F Pulse Rate 59 L Pulse Rate [ Anterior Bilateral Throughout] Respiratory 17 17 Rate Respiratory Rate [Anterior Bilateral Throughout] Blood Pressure 130/50 [Right] O2 Sat by Pulse 92 98 Oximetry 12/03/21 12/03/21 08:20 08:23 Temperature Pulse Rate Pulse Rate [ 87 Anterior Bilateral Throughout] Respiratory Rate Respiratory 20 Rate [Anterior Bilateral Throughout] Blood Pressure [Right] O2 Sat by Pulse 97 Oximetry Constitutional: no acute distress, alert ENT: other (Poor dentition) Neck: no JVD Ascultation: Bilateral: diminished breath sounds Cardiovascular: regular rate and rhythm Gastrointestinal: normoactive bowel sounds, tender (Mildly tender near the incision sites), non-distended Extremities: edema (Both lower extremities) Neurologic: normal mental status, non-focal exam Psychiatric: mood appropriate CBC and BMP: 12/03/21 05:17 12/03/21 05:17 ABG, PT/INR, D-dimer: ABG ABG pH 7.438 pH Units (7.350-7.450) 12/02/21 15:35 POC ABG pCO2 34.1 mmHg (32.0-48.0) 12/01/21 21:24 ABG pCO2 36.3 mm Hg 12/02/21 15:35 POC ABG pO2 51.0 mmHg (83-108) L 12/01/21 21:24 ABG pO2 63.3 mm Hg (80.0-90.0) L 12/02/21 15:35 POC ABG HCO3 23.1 12/01/21 21:24 ABG O2 Saturation 94.3 % (95.0-99.0) L 12/02/21 15:35 PT/INR, D-dimer PT 13.3 Sec. (12.2-14.9) 11/29/21 22:26 INR 0.92 (0.87-1.13) 11/29/21 22:26 D-Dimer 1046.03 ng/mlDDU (0-234) H 12/01/21 20:55 Abnormal lab findings: Abnormal Labs 11/29/21 11/29/21 11/29/21 21:22 21:22 22:26 WBC 18.1 H RBC 3.55 L Hgb 10.2 L Hct 32.9 L MCHC 31 L RDW 16.3 H Plt Count 775 H Lymph % (Auto) 7.3 L [place] % (Auto) Lymph # (Auto) [place] # (Auto) 0.9 H Seg Neutrophils % 87.2 H Seg Neuts % (Manual) Lymphocytes % (Manual) Seg Neutrophils # 15.8 H Seg Neutrophils # Man Lymphocytes # (Manual) D-Dimer POC ABG pO2 ABG pO2 ABG O2 Saturation ABG Hemoglobin ABG Oxyhemoglobin Oxyhemoglobin Sodium 132 L Potassium 3.4 L Chloride 93.4 L Carbon Dioxide 20 L BUN Creatinine 1.9 H Glucose 159 H Lactic Acid 3.10 H* Calcium Alkaline Phosphatase 150 H Total Protein 8.7 H Albumin 3.7 L 11/30/21 11/30/21 12/01/21 06:45 06:45 05:30 WBC 15.1 H 14.0 H RBC 2.93 L 2.50 L Hgb 8.5 L 7.3 L Hct 26.9 L D 23.1 L MCHC RDW 16.7 H 16.4 H Plt Count 598 H 548 H Lymph % (Auto) 7.4 L [place] % (Auto) Lymph # (Auto) 1.0 L [place] # (Auto) Seg Neutrophils % 86.8 H Seg Neuts % (Manual) Lymphocytes % (Manual) Seg Neutrophils # 12.2 H Seg Neutrophils # Man Lymphocytes # (Manual) D-Dimer POC ABG pO2 ABG pO2 ABG O2 Saturation ABG Hemoglobin ABG Oxyhemoglobin Oxyhemoglobin Sodium Potassium Chloride Carbon Dioxide BUN 21 H Creatinine 1.7 H Glucose Lactic Acid Calcium 7.9 L Alkaline Phosphatase Total Protein Albumin 12/01/21 12/01/21 12/01/21 05:30 20:55 21:24 WBC RBC Hgb Hct MCHC RDW Plt Count Lymph % (Auto) [place] % (Auto) Lymph # (Auto) [place] # (Auto) Seg Neutrophils % Seg Neuts % (Manual) Lymphocytes % (Manual) Seg Neutrophils # Seg Neutrophils # Man Lymphocytes # (Manual) D-Dimer 1046.03 H POC ABG pO2 51.0 L ABG pO2 ABG O2 Saturation ABG Hemoglobin 8.0 L ABG Oxyhemoglobin 86.6 L Oxyhemoglobin Sodium 133 L Potassium Chloride Carbon Dioxide 21 L BUN Creatinine Glucose Lactic Acid Calcium 7.9 L Alkaline Phosphatase Total Protein Albumin 12/02/21 12/02/21 12/02/21 09:22 09:22 15:35 WBC RBC 2.60 L Hgb 7.5 L Hct 24.0 L MCHC 31 L RDW 16.7 H Plt Count 587 H Lymph % (Auto) [place] % (Auto) 8.5 H Lymph # (Auto) [place] # (Auto) 0.9 H Seg Neutrophils % Seg Neuts % (Manual) Lymphocytes % (Manual) Seg Neutrophils # Seg Neutrophils # Man Lymphocytes # (Manual) D-Dimer POC ABG pO2 ABG pO2 63.3 L ABG O2 Saturation 94.3 L ABG Hemoglobin 7.8 L ABG Oxyhemoglobin Oxyhemoglobin 92.5 L Sodium 131 L Potassium 3.5 L Chloride Carbon Dioxide 21 L BUN Creatinine Glucose Lactic Acid Calcium 8.0 L Alkaline Phosphatase Total Protein Albumin 12/03/21 12/03/21 05:17 05:17 WBC RBC 2.61 L Hgb 7.9 L Hct 23.8 L MCHC RDW 16.7 H Plt Count 562 H Lymph % (Auto) [place] % (Auto) Lymph # (Auto) [place] # (Auto) Seg Neutrophils % Seg Neuts % (Manual) 96.0 H Lymphocytes % (Manual) 2.0 L Seg Neutrophils # Seg Neutrophils # Man 10.0 H Lymphocytes # (Manual) 0.2 L D-Dimer POC ABG pO2 ABG pO2 ABG O2 Saturation ABG Hemoglobin ABG Oxyhemoglobin Oxyhemoglobin Sodium 135 L Potassium Chloride Carbon Dioxide BUN Creatinine Glucose 158 H Lactic Acid Calcium Alkaline Phosphatase Total Protein Albumin
[2021-12-04] MEDS: MORPHINE 2 MG/1 ML INJ IV PRN ×4 (01:06→16:42)
[2021-12-04] MEDS: PIPERACIL/TAZOBACTA 4.5/NS 100 4.5 GM/100 ML VIAL IV SCH ×3 (01:16→16:42)
[2021-12-04] MEDS: ALBUTEROL 2.5 MG/3 ML NEBU IH SCH ×4 (04:28→19:43)
[2021-12-04] MEDS: HEPARIN 5,000 UNIT/1 ML VIAL SUB-Q SCH ×3 (05:28→21:30)
[2021-12-04] MEDS: methylPREDNISolone Sod Succinate 40 MG/1 ML INJ IV SCH ×3 (05:28→21:30)
--- NOTE | 2021-12-04 08:01 | Progress Note ---
Assessment and Plan Assessment and plan: 61-year-old male seen in the emergency room today complaining of scrotal swelling. Patient has known history of right-sided inguinal/scrotal hernia. He is usually able to reduce it however he has had difficulty reducing it today and has also been having pain. Swelling has been getting progressively worse which prompted visit to the emergency room. CT of the abdomen and pelvis reveals probable mild proximal enteritis, large right inguinal hernia that contains multiple loops of distal small bowel. Acute hypoxic respiratory failure Acute COPD exacerbation large right inguinal hernia Abdominal pain Enteritis Acute kidney injury. Baseline creatinine 0.7 in 2018 Hypokalemia. Resolved Sepsis. Present on admission. Patient meets criteria given the leukocytosis, tachycardia and diagnosis of enteritis Tobacco abuse. Patient with [id number] history Costochondritis 11/30/2021. Continue IV fluid hydration. Acute kidney injury is secondary to vasomotor nephropathy/dehydration. Continue antiemetics and pain control. Surgery consulted and to repair hernia this morning. No radiographic evidence of obstruction or strangulation. Patient does have sepsis secondary to enteritis as seen on CT scan. We will continue IV antibiotics. 12/01/2021. Patient was awaiting for discharge home but developed hypoxia prior to leaving. Patient was noted to have desaturation to 83% and elevated D-dimer. CTA of chest was obtained and found to be negative. 12/02/2021. Patient remains hypoxic and requiring salter nasal cannula at 10 L O2 with saturation of 93%. CTA and previous chest x-ray found to be negative. Unclear etiology.? COPD exacerbation. We will start IV steroids and bro nchodilators. Consult pulmonary for further evaluation. 12/03/2021. Patient complained of left-sided chest pain this morning. EKG unremarkable. Pain is reproducible with palpation. Patient still requiring significant amount of oxygen with 8 L per salter nasal cannula. Patient does report [id number] history but no diagnosis of COPD. I suspect patient has COPD exacerbation and we will continue with steroids and bronchodilators/nebulizers. 12/04/2021. Patient remains on 8 L O2. Troponin was found to be negative. Chest pain still reproducible with palpation. Continue steroids and bronch odilators/nebulizers. Continue supplemental oxygen and wean as tolerated History Interval history: No new issues overnight Hospitalist Physical - Constitutional Vitals: Temp Pulse Resp BP Pulse Ox 98.7 F 74 17 150/100 94 12/04/21 05:22 12/04/21 05:22 12/04/21 05:58 12/04/21 05:22 12/04/21 05:22 General appearance: Present: no acute distress, well-nourished - EENT Eyes: Present: PERRL, EOM intact ENT: hearing intact, clear oral mucosa, dentition normal - Neck Neck: Present: supple, normal ROM - Respiratory Respiratory effort: normal Respiratory: bilateral: CTA - Cardiovascular Rhythm: regular Heart Sounds: Present: S1 & S2. Absent: gallop, rub - Extremities Extremities: no ischemia, No edema, Full ROM - Abdominal General gastrointestinal: soft, non-tender, non-distended, normal bowel sounds - Integumentary Integumentary: Present: clear, warm, dry - Neurologic Neurologic: CNII-XII intact, moves all extremities HEART Score - HEART Score Troponin: Troponin T < 0.010 ng/mL (0.00-0.029) 12/03/21 05:17 Results - Labs CBC & Chem 7: 12/03/21 05:17 12/03/21 05:17 Labs: Laboratory Last Values WBC 10.4 K/mm3 (4.5-11.0) 12/03/21 05:17 RBC 2.61 M/mm3 (3.65-5.03) L 12/03/21 05:17 Hgb 7.9 gm/dl (11.8-15.2) L 12/03/21 05:17 Hct 23.8 % (35.5-45.6) L 12/03/21 05:17 MCV 91 fl (84-94) 12/03/21 05:17 MCH 31 pg (28-32) 12/03/21 05:17 MCHC 33 % (32-34) 12/03/21 05:17 RDW 16.7 % (13.2-15.2) H 12/03/21 05:17 Plt Count 562 K/mm3 (140-440) H 12/03/21 05:17 Lymph % (Auto) 23.4 % (13.4-35.0) 12/02/21 09:22 [place] % (Auto) 8.5 % (0.0-7.3) H 12/02/21 09:22 Eos % (Auto) 1.2 % (0.0-4.3) 12/02/21 09:22 Baso % (Auto) 0.8 % (0.0-1.8) 12/02/21 09:22 Lymph # (Auto) 2.4 K/mm3 (1.2-5.4) 12/02/21 09:22 [place] # (Auto) 0.9 K/mm3 (0.0-0.8) H 12/02/21 09:22 Eos # (Auto) 0.1 K/mm3 (0.0-0.4) 12/02/21 09:22 Baso # (Auto) 0.1 K/mm3 (0.0-0.1) 12/02/21 09:22 Add Manual Diff Complete 12/03/21 05:17 Total Counted 100 12/03/21 05:17 Seg Neutrophils % Route Agent 12/03/21 05:17 Seg Neuts % (Manual) 96.0 % (40.0-70.0) H 12/03/21 05:17 Band Neutrophils % 0 % 12/03/21 05:17 Lymphocytes % (Manual) 2.0 % (13.4-35.0) L 12/03/21 05:17 Reactive Lymphs % (Man) 0 % 12/03/21 05:17 Monocytes % (Manual) 2.0 % (0.0-7.3) 12/03/21 05:17 Eosinophils % (Manual) 0 % (0.0-4.3) 12/03/21 05:17 Basophils % (Manual) 0 % (0.0-1.8) 12/03/21 05:17 Metamyelocytes % 0 % 12/03/21 05:17 Myelocytes % 0 % 12/03/21 05:17 Promyelocytes % 0 % 12/03/21 05:17 Blast Cells % 0 % 12/03/21 05:17 Nucleated RBC % Not Reportable 12/03/21 05:17 Seg Neutrophils # 6.8 K/mm3 (1.8-7.7) 12/02/21 09:22 Seg Neutrophils # Man 10.0 K/mm3 (1.8-7.7) H 12/03/21 05:17 Band Neutrophils # 0.0 K/mm3 12/03/21 05:17 Lymphocytes # (Manual) 0.2 K/mm3 (1.2-5.4) L 12/03/21 05:17 Abs React Lymphs (Man) 0.0 K/mm3 12/03/21 05:17 Monocytes # (Manual) 0.2 K/mm3 (0.0-0.8) 12/03/21 05:17 Eosinophils # (Manual) 0.0 K/mm3 (0.0-0.4) 12/03/21 05:17 Basophils # (Manual) 0.0 K/mm3 (0.0-0.1) 12/03/21 05:17 Metamyelocytes # 0.0 K/mm3 12/03/21 05:17 Myelocytes # 0.0 K/mm3 12/03/21 05:17 Promyelocytes # 0.0 K/mm3 12/03/21 05:17 Blast Cells # 0.0 K/mm3 12/03/21 05:17 WBC Morphology Not Reportable 12/03/21 05:17 Hypersegmented Neuts Not Reportable 12/03/21 05:17 Hyposegmented Neuts Not Reportable 12/03/21 05:17 Hypogranular Neuts Not Reportable 12/03/21 05:17 Smudge Cells Not Reportable 12/03/21 05:17 Toxic Granulation Not Reportable 12/03/21 05:17 Toxic Vacuolation Not Reportable 12/03/21 05:17 Dohle Bodies Not Reportable 12/03/21 05:17 Pelger-Huet Anomaly Not Reportable 12/03/21 05:17 Manpreet Rods Not Reportable 12/03/21 05:17 Platelet Estimate Consistent w auto 12/03/21 05:17 Clumped Platelets Not Reportable 12/03/21 05:17 Plt Clumps, EDTA Not Reportable 12/03/21 05:17 Large Platelets Not Reportable 12/03/21 05:17 Giant Platelets Not Reportable 12/03/21 05:17 Platelet Satelliting Not Reportable 12/03/21 05:17 Plt Morphology Comment Not Reportable 12/03/21 05:17 RBC Morphology Not Reportable 12/03/21 05:17 Dimorphic RBCs Not Reportable 12/03/21 05:17 Polychromasia Not Reportable 12/03/21 05:17 Hypochromasia Not Reportable 12/03/21 05:17 Poikilocytosis Not Reportable 12/03/21 05:17 Anisocytosis 1+ 12/03/21 05:17 Microcytosis Not Reportable 12/03/21 05:17 Macrocytosis Not Reportable 12/03/21 05:17 Spherocytes Not Reportable 12/03/21 05:17 Pappenheimer Bodies Not Reportable 12/03/21 05:17 Sickle Cells Not Reportable 12/03/21 05:17 Target Cells Not Reportable 12/03/21 05:17 Tear Drop Cells Not Reportable 12/03/21 05:17 Ovalocytes Not Reportable 12/03/21 05:17 Helmet Cells Not Reportable 12/03/21 05:17 [place] Bodies Not Reportable 12/03/21 05:17 Vancleve Rings Not Reportable 12/03/21 05:17 Ingrid Cells Not Reportable 12/03/21 05:17 Bite Cells Not Reportable 12/03/21 05:17 Crenated Cell Not Reportable 12/03/21 05:17 Elliptocytes Not Reportable 12/03/21 05:17 Acanthocytes (Spur) Not Reportable 12/03/21 05:17 Rouleaux Not Reportable 12/03/21 05:17 Hemoglobin C Crystals Not Reportable 12/03/21 05:17 Schistocytes Not Reportable 12/03/21 05:17 Malaria parasites Not Reportable 12/03/21 05:17 Ruperto Bodies Not Reportable 12/03/21 05:17 Hem Pathologist Commnt No 12/03/21 05:17 PT 13.3 Sec. (12.2-14.9) 11/29/21 22:26 INR 0.92 (0.87-1.13) 11/29/21 22:26 APTT 26.9 Sec. (24.2-36.6) 11/29/21 22:26 D-Dimer 1046.03 ng/mlDDU (0-234) H 12/01/21 20:55 ABG pH 7.438 pH Units (7.350-7.450) 12/02/21 15:35 POC ABG pCO2 34.1 mmHg (32.0-48.0) 12/01/21 21:24 ABG pCO2 36.3 mm Hg 12/02/21 15:35 POC ABG pO2 51.0 mmHg (83-108) L 12/01/21 21:24 ABG pO2 63.3 mm Hg (80.0-90.0) L 12/02/21 15:35 POC ABG HCO3 23.1 12/01/21 21:24 ABG HCO3 24.0 mmol/L (20.0-26.0) 12/02/21 15:35 ABG O2 Saturation 94.3 % (95.0-99.0) L 12/02/21 15:35 ABG O2 Content 10.2 (0.0-44) 12/02/21 15:35 POC ABG Base Excess -0.7 12/01/21 21:24 ABG Base Excess -0.1 mmol/L (-2.0-3.0) 12/02/21 15:35 ABG Hemoglobin 7.8 gm/dl (14.0-18.0) L 12/02/21 15:35 ABG Oxyhemoglobin 86.6 (94-98) L 12/01/21 21:24 ABG Carboxyhemoglobin 1.5 % (0.0-5.0) 12/02/21 15:35 ABG Methemoglobin 0.4 % (0.0-1.5) 12/02/21 15:35 Oxyhemoglobin 92.5 % (95.0-99.0) L 12/02/21 15:35 Carboxyhemoglobin 0.8 (0.5-1.5) 12/01/21 21:24 FiO2 52 % 12/02/21 15:35 FiO2 % 28 12/01/21 21:24 Sodium 135 mmol/L (137-145) L 12/03/21 05:17 Potassium 4.2 mmol/L (3.6-5.0) 12/03/21 05:17 Chloride 100.5 mmol/L (98-107) 12/03/21 05:17 Carbon Dioxide 22 mmol/L (22-30) 12/03/21 05:17 Anion Gap 17 mmol/L 12/03/21 05:17 BUN 14 mg/dL (9-20) 12/03/21 05:17 Creatinine 0.9 mg/dL (0.8-1.3) 12/03/21 05:17 Estimated GFR > 60 ml/min 12/03/21 05:17 BUN/Creatinine Ratio 16 % 12/03/21 05:17 Glucose 158 mg/dL (75-100) H 12/03/21 05:17 Hemoglobin A1c 5.4 % (4-6) 11/30/21 06:45 Lactic Acid 1.80 mmol/L (0.7-2.0) 12/03/21 16:37 Calcium 8.6 mg/dL (8.4-10.2) 12/03/21 05:17 Magnesium 2.00 mg/dL (1.7-2.3) 11/29/21 22:26 Total Bilirubin 0.30 mg/dL (0.1-1.2) 11/29/21 21:22 AST 31 units/L (5-40) 11/29/21 21:22 ALT 24 units/L (7-56) 11/29/21 21:22 Alkaline Phosphatase 150 units/L (35-129) H 11/29/21 21:22 Total Creatine Kinase 58 units/L (55-170) 11/29/21 22:26 Troponin T < 0.010 ng/mL (0.00-0.029) 12/03/21 05:17 Total Protein 8.7 g/dL (6.3-8.2) H 11/29/21 21:22 Albumin 3.7 g/dL (3.9-5) L 11/29/21 21:22 Albumin/Globulin Ratio 0.7 % 11/29/21 21:22 Procalcitonin < 0.05 ng/mL (<0.15) 12/03/21 13:13 Urine Color Yellow (Yellow) 11/30/21 03:24 Urine Turbidity Clear (Clear) 11/30/21 03:24 Urine pH 6.0 (5.0-7.0) 11/30/21 03:24 Ur Specific [place] 1.005 (1.003-1.030) 11/30/21 03:24 Urine Protein 30 mg/dl mg/dL (Negative) 11/30/21 03:24 Urine Glucose (UA) Negative mg/dL (Negative) 11/30/21 03:24 Urine Ketones Negative mg/dL (Negative) 11/30/21 03:24 Urine Blood Negative (Negative) 11/30/21 03:24 Urine Nitrite Negative (Negative) 11/30/21 03:24 Ur Reducing Substances Not Reportable 11/30/21 03:24 Urine Bilirubin Negative (Negative) 11/30/21 03:24 Urine Ictotest Not Reportable 11/30/21 03:24 Urine Urobilinogen < 2.0 mg/dL (<2.0) 11/30/21 03:24 Ur Leukocyte Esterase Negative (Negative) 11/30/21 03:24 Urine WBC (Auto) 4.0 /HPF (0.0-6.0) 11/30/21 03:24 Urine RBC (Auto) 1.0 /HPF (0.0-6.0) 11/30/21 03:24 U Epithel Cells (Auto) 1.0 /HPF (0-13.0) 11/30/21 03:24 Urine Mucus Few /HPF 11/30/21 03:24 Coronavirus (PCR) Negative (Negative) 12/02/21 10:15 Blood Type A POSITIVE 11/29/21 22:26 Antibody Screen Negative 11/29/21 22:26 Microbiology: Microbiology 11/29/21 01:10 Peripheral/Venous Blood Culture - Preliminary NO GROWTH AFTER 4 DAYS 11/30/21 01:10 Peripheral/Venous Blood Culture - Preliminary NO GROWTH AFTER 4 DAYS [place]/IV: Voiding Method Urinal Active Medications - Current Medications Current Medications: Generic Name Dose Route Start Last Admin Trade Name Freq PRN Reason Stop Dose Admin Acetaminophen 650 mg 11/30/21 02:49 Acetaminophen 325 Mg Tab PO Q4H PRN Pain MILD(1-3)/Fever >100.5/GUZMAN Albuterol 2.5 mg 12/02/21 14:00 12/04/21 04:28 Albuterol 2.5 Mg/3 Ml Nebu IH Not Given Q6HRT SOFIA Gabapentin 300 mg 11/30/21 22:00 12/03/21 21:36 Gabapentin 300 Mg Cap PO 300 mg BID SOFIA Administration Heparin Sodium (Porcine) 5,000 unit 11/30/21 09:30 12/04/21 05:28 Heparin 5,000 Unit/1 Ml Vial SUB-Q 5,000 unit Q8HR SOFIA Administration Piperacillin Sod/Tazobactam Sod 4.5 gm in 100 mls @ 200 mls/hr 11/30/21 09:00 12/04/21 01:16 Zosyn/Ns 4.5gm/100ml IV 200 mls/hr Q8H SOFIA Administration Protocol Methylprednisolone Sodium Succinate 40 mg 12/02/21 14:00 12/04/21 05:28 Methylprednisolone Sod Succinate 40 Mg/1 Ml Inj IV 40 mg Q8HR SOFIA Administration Morphine Sulfate 2 mg 11/30/21 02:49 12/04/21 05:28 Morphine 2 Mg/1 Ml Inj IV 2 mg Q4H PRN Administration Pain , Severe (7-10) Ondansetron HCl 4 mg 11/30/21 01:41 Ondansetron 4 Mg/2 Ml Inj IV Q8H PRN Nausea And Vomiting Oxycodone/Acetaminophen 1 tab 11/30/21 14:55 12/03/21 17:11 Oxycodone /Acetaminophen 5-325mg Tab PO 1 tab Q4H PRN Administration Pain, Moderate (4-6) Sodium Chloride 10 ml 11/30/21 10:00 12/03/21 21:36 Sodium Chloride 0.9% 10 Ml Flush Syringe IV 10 ml BID SOFIA Administration Sodium Chloride 10 ml 11/30/21 01:41 Sodium Chloride 0.9% 10 Ml Flush Syringe IV PRN PRN LINE FLUSH
[2021-12-04] MEDS: GABAPENTIN 300 MG CAP PO SCH ×2 (09:40→21:30)
--- NOTE | 2021-12-04 12:28 | Progress Note ---
Assessment and Plan 61 y/o male with likely COPD, tobacco abuse, admitted with abdominal pain, found to have hernia, repair and had subsequent hypoxemia, post-op with negative CTA for PE 1. CT did show ground glass. Patient likely does have COPD with smoking history so agree with steroids. However, also need to obtain net negative volume state to help dry the lungs out. Likely got a large amount of fluid during surgery and post op. Will give IV lasix 20mg today as patient has had improvement when he was net negative. WEan FiO2 for sats >88% but will need ambulatory pulse ox prior to discharge. Also would go ahead and start on oral PRednisone 60 and taper rapidly so to not prevent healing at wound site: 60 daily for 2 days, 40 daily for 2 days then 20 daily for 2 days then stop. May need a PRN rescue inhaler until he follows up in the office. Subjective Date of service: 12/04/21 Interval history: Down to 3 liters. Was net negative yesterday but positive so far today. BP elevated. Objective Vital Signs - 12hr 12/04/21 12/04/21 12/04/21 01:06 01:36 05:22 Temperature 98.7 F Pulse Rate 74 Pulse Rate [ Anterior Bilateral Throughout] Respiratory 17 17 17 Rate Respiratory Rate [Anterior Bilateral Throughout] Blood Pressure 150/100 [Right] O2 Sat by Pulse 94 Oximetry 12/04/21 12/04/21 12/04/21 05:28 05:58 08:00 Temperature Pulse Rate Pulse Rate [ Anterior Bilateral Throughout] Respiratory 17 17 Rate Respiratory Rate [Anterior Bilateral Throughout] Blood Pressure [Right] O2 Sat by Pulse 96 Oximetry 12/04/21 12/04/21 12/04/21 09:44 09:45 10:01 Temperature 98.5 F Pulse Rate 78 Pulse Rate [ 91 H Anterior Bilateral Throughout] Respiratory 18 Rate Respiratory 20 Rate [Anterior Bilateral Throughout] Blood Pressure 152/59 [Right] O2 Sat by Pulse 96 96 Oximetry Constitutional: no acute distress, alert ENT: other (Poor dentition) Neck: no JVD Ascultation: Bilateral: diminished breath sounds Cardiovascular: regular rate and rhythm Gastrointestinal: normoactive bowel sounds, tender (Mildly tender near the incision sites), non-distended Extremities: edema (Both lower extremities) Neurologic: normal mental status, non-focal exam Psychiatric: mood appropriate CBC and BMP: 12/03/21 05:17 12/03/21 05:17 ABG, PT/INR, D-dimer: ABG ABG pH 7.438 pH Units (7.350-7.450) 12/02/21 15:35 POC ABG pCO2 34.1 mmHg (32.0-48.0) 12/01/21 21:24 ABG pCO2 36.3 mm Hg 12/02/21 15:35 POC ABG pO2 51.0 mmHg (83-108) L 12/01/21 21:24 ABG pO2 63.3 mm Hg (80.0-90.0) L 12/02/21 15:35 POC ABG HCO3 23.1 12/01/21 21:24 ABG O2 Saturation 94.3 % (95.0-99.0) L 12/02/21 15:35 PT/INR, D-dimer PT 13.3 Sec. (12.2-14.9) 11/29/21 22:26 INR 0.92 (0.87-1.13) 11/29/21 22:26 D-Dimer 1046.03 ng/mlDDU (0-234) H 12/01/21 20:55 Abnormal lab findings: Abnormal Labs 11/29/21 11/29/21 11/29/21 21:22 21:22 22:26 WBC 18.1 H RBC 3.55 L Hgb 10.2 L Hct 32.9 L MCHC 31 L RDW 16.3 H Plt Count 775 H Lymph % (Auto) 7.3 L [place] % (Auto) Lymph # (Auto) [place] # (Auto) 0.9 H Seg Neutrophils % 87.2 H Seg Neuts % (Manual) Lymphocytes % (Manual) Seg Neutrophils # 15.8 H Seg Neutrophils # Man Lymphocytes # (Manual) D-Dimer POC ABG pO2 ABG pO2 ABG O2 Saturation ABG Hemoglobin ABG Oxyhemoglobin Oxyhemoglobin Sodium 132 L Potassium 3.4 L Chloride 93.4 L Carbon Dioxide 20 L BUN Creatinine 1.9 H Glucose 159 H Lactic Acid 3.10 H* Calcium Alkaline Phosphatase 150 H Total Protein 8.7 H Albumin 3.7 L 11/30/21 11/30/21 12/01/21 06:45 06:45 05:30 WBC 15.1 H 14.0 H RBC 2.93 L 2.50 L Hgb 8.5 L 7.3 L Hct 26.9 L D 23.1 L MCHC RDW 16.7 H 16.4 H Plt Count 598 H 548 H Lymph % (Auto) 7.4 L [place] % (Auto) Lymph # (Auto) 1.0 L [place] # (Auto) Seg Neutrophils % 86.8 H Seg Neuts % (Manual) Lymphocytes % (Manual) Seg Neutrophils # 12.2 H Seg Neutrophils # Man Lymphocytes # (Manual) D-Dimer POC ABG pO2 ABG pO2 ABG O2 Saturation ABG Hemoglobin ABG Oxyhemoglobin Oxyhemoglobin Sodium Potassium Chloride Carbon Dioxide BUN 21 H Creatinine 1.7 H Glucose Lactic Acid Calcium 7.9 L Alkaline Phosphatase Total Protein Albumin 12/01/21 12/01/21 12/01/21 05:30 20:55 21:24 WBC RBC Hgb Hct MCHC RDW Plt Count Lymph % (Auto) [place] % (Auto) Lymph # (Auto) [place] # (Auto) Seg Neutrophils % Seg Neuts % (Manual) Lymphocytes % (Manual) Seg Neutrophils # Seg Neutrophils # Man Lymphocytes # (Manual) D-Dimer 1046.03 H POC ABG pO2 51.0 L ABG pO2 ABG O2 Saturation ABG Hemoglobin 8.0 L ABG Oxyhemoglobin 86.6 L Oxyhemoglobin Sodium 133 L Potassium Chloride Carbon Dioxide 21 L BUN Creatinine Glucose Lactic Acid Calcium 7.9 L Alkaline Phosphatase Total Protein Albumin 12/02/21 12/02/21 12/02/21 09:22 09:22 15:35 WBC RBC 2.60 L Hgb 7.5 L Hct 24.0 L MCHC 31 L RDW 16.7 H Plt Count 587 H Lymph % (Auto) [place] % (Auto) 8.5 H Lymph # (Auto) [place] # (Auto) 0.9 H Seg Neutrophils % Seg Neuts % (Manual) Lymphocytes % (Manual) Seg Neutrophils # Seg Neutrophils # Man Lymphocytes # (Manual) D-Dimer POC ABG pO2 ABG pO2 63.3 L ABG O2 Saturation 94.3 L ABG Hemoglobin 7.8 L ABG Oxyhemoglobin Oxyhemoglobin 92.5 L Sodium 131 L Potassium 3.5 L Chloride Carbon Dioxide 21 L BUN Creatinine Glucose Lactic Acid Calcium 8.0 L Alkaline Phosphatase Total Protein Albumin 12/03/21 12/03/21 12/03/21 05:17 05:17 13:13 WBC RBC 2.61 L Hgb 7.9 L Hct 23.8 L MCHC RDW 16.7 H Plt Count 562 H Lymph % (Auto) [place] % (Auto) Lymph # (Auto) [place] # (Auto) Seg Neutrophils % Seg Neuts % (Manual) 96.0 H Lymphocytes % (Manual) 2.0 L Seg Neutrophils # Seg Neutrophils # Man 10.0 H Lymphocytes # (Manual) 0.2 L D-Dimer POC ABG pO2 ABG pO2 ABG O2 Saturation ABG Hemoglobin ABG Oxyhemoglobin Oxyhemoglobin Sodium 135 L Potassium Chloride Carbon Dioxide BUN Creatinine Glucose 158 H Lactic Acid 3.30 H* Calcium Alkaline Phosphatase Total Protein Albumin
[2021-12-04] MEDS ORDERED: FUROSEMIDE 20 MG/2 ML INJ IV NR (12:30)
[2021-12-04] MEDS: oxyCODONE /ACETAMINOPHEN 5-325MG TAB PO PRN (21:30)
[2021-12-05] MEDS: PIPERACIL/TAZOBACTA 4.5/NS 100 4.5 GM/100 ML VIAL IV SCH (00:45)
[2021-12-05] MEDS: MORPHINE 2 MG/1 ML INJ IV PRN ×2 (01:52→12:20)
[2021-12-05] MEDS: methylPREDNISolone Sod Succinate 40 MG/1 ML INJ IV SCH ×2 (05:46→14:33)
[2021-12-05] MEDS: oxyCODONE /ACETAMINOPHEN 5-325MG TAB PO PRN (05:46)
[2021-12-05] MEDS: HEPARIN 5,000 UNIT/1 ML VIAL SUB-Q SCH ×2 (05:46→14:33)
[2021-12-05] MEDS: ALBUTEROL 2.5 MG/3 ML NEBU IH SCH ×2 (08:38→14:35)
[2021-12-05] MEDS: GABAPENTIN 300 MG CAP PO SCH (09:26)
--- NOTE | 2021-12-05 11:11 | Discharge Summary ---
Providers - Providers Date of Admission: 11/30/21 02:49 Date of discharge: 12/05/21 Attending physician: HANS TAVAREZ MD 11/29/21 22:06 Consult to Physician [CONS] Urgent Comment: Dr. Pina spoke with Dr. Pichardo @ 1218 Consulting Provider: UVALDO PICHARDO Physician Instructions: Reason For Exam: HERNIA 12/02/21 09:13 Consult to Physician [CONS] Routine Comment: Consulting Provider: PRABHAKAR TURNER Physician Instructions: Reason For Exam: hypoxia 12/03/21 07:47 Physical Therapy Evaluation and Treat [CONS] Urgent Comment: Reason For Exam: post op patient has not been out of bed. Primary care physician: EMPLOYMENT [employer] SPECIALIST Hospitalization Reason for admission: scrotal swelling Condition: Good Hospital course: 61-year-old male seen in the emergency room today complaining of scrotal swelling. Patient has known history of right-sided inguinal/scrotal hernia. He is usually able to reduce it however he has had difficulty reducing it today and has also been having pain. Swelling has been getting progressively worse which prompted visit to the emergency room. CT of the abdomen and pelvis re veals probable mild proximal enteritis, large right inguinal hernia that contains multiple loops of distal small bowel. Assessment and plan: Acute hypoxic respiratory failure Acute COPD exacerbation large right inguinal hernia Abdominal pain Enteritis Acute kidney injury. Baseline creatinine 0.7 in 2018 Hypokalemia. Resolved Sepsis. Present on admission. Patient meets criteria given the leukocytosis, tachycardia and diagnosis of enteritis Tobacco abuse. Patient with [id number] history Costochondritis Hospital Course: 11/30/2021. Continue IV fluid hydration. Acute kidney injury is secondary to vasomotor nephropathy/dehydration. Continue antiemetics and pain control. Surgery consulted and to repair hernia this morning. No radiographic evidence of obstruction or strangulation. Patient does have sepsis secondary to enteritis as seen on CT scan. We will continue IV antibiotics. 12/01/2021. Patient was awaiting for discharge home but developed hypoxia prior to leaving. Patient was noted to have desaturation to 83% and elevated D-dimer. CTA of chest was obtained and found to be negative. 12/02/2021. Patient remains hypoxic and requiring salter nasal cannula at 10 L O2 with saturation of 93%. CTA and previous chest x-ray found to be negative. Unclear etiology.? COPD exacerbation. We will start IV steroids and bronchodilators. Consult pulmonary for further evaluation. 12/03/2021. Patient complained of left-sided chest pain this morning. EKG unremarkable. Pain is reproducible with palpation. Patient still requiring significant amount of oxygen with 8 L per salter nasal cannula. Patient does report [id number] history but no diagnosis of COPD. I suspect patient has COPD exacerbation and we will continue with steroids and bronchodilators/nebulizers. 12/04/2021. Patient remains on 8 L O2. Troponin was found to be negative. Chest pain still reproducible with palpation. Continue steroids and bronchodilators/nebulizers. Continue supplemental oxygen and wean as tolerated 12/05/2021: Currently on room air saturating 96% per . Plan for discharge home today with home health care. Will transmit rx for steroid taper as well as inhaler treatments. Discharge with levaquin and oxycodone rx as well. Will advise to follow up as an outpatient with surgery and pulmonology. Disposition: HOME HEALTH CARE SERVICE Final Discharge Diagnosis (Prints w/discharge instructions): Acute hypoxic respiratory failure, acute copd exacerbation, right inguinal hernia Time spent for discharge: 35 Core Measure Documentation - Palliative Care Palliative Care/ Comfort Measures: Not Applicable - Core Measures Any of the following diagnoses?: none Exam - Physical Exam Narrative exam: General appearance: Present: no acute distress, well-nourished - EENT Eyes: Present: PERRL, EOM intact ENT: hearing intact, clear oral mucosa, dentition normal - Neck Neck: Present: supple, normal ROM - Respiratory Respiratory effort: normal Respiratory: bilateral: CTA - Cardiovascular Rhythm: regular Heart Sounds: Present: S1 & S2. Absent: gallop, rub - Extremities Extremities: no ischemia, No edema, Full ROM - Abdominal General gastrointestinal: soft, non-tender, non-distended, normal bowel sounds - Integumentary Integumentary: Present: clear, warm, dry - Neurologic Neurologic: CNII-XII intact, moves all extremities - Constitutional Vitals: Temp Pulse Resp BP Pulse Ox 98.1 F 56 L 20 143/87 94 12/05/21 05:41 12/05/21 05:41 12/05/21 08:09 12/05/21 05:41 12/05/21 10:42 Plan Wound: per your surgeon's advice (Post op instructions including avoiding heavy lifting or straining for 6 weeks, no smoking, etc. discussed with patient and also printed and placed on chart. Patient instructed to follow-up in surgery clinic in 2 weeks.) Follow up with: UVALDO PICHARDO DO [Staff Physician] - 14 Days PRIMARY CARE, [Primary Care Provider] - 3-5 Days Prescriptions: predniSONE [Deltasone] 20 mg PO DAILY 6 Days #12 tab levoFLOXacin [Levaquin TAB] 500 mg PO QDAY #7 oxyCODONE /ACETAMINOPHEN [Percocet 5/325 mg] 1 tab PO Q4H PRN #10 tablet PRN Reason: Pain, Moderate (4-6) Tiotropium [Spiriva] 18 mcg IH QDAY 30 Days #1 box
[2021-12-05 11:13] VITALS: BP 148/64
--- NOTE | 2021-12-05 11:25 | Progress Note ---
Assessment and Plan 61 y/o male with likely COPD, tobacco abuse, admitted with abdominal pain, found to have hernia, repair and had subsequent hypoxemia, post-op with negative CTA for PE 12/05/21: Will give another dose of lasix today. Same recs for Pred taper as listed yesterday. 1. CT did show ground glass. Patient likely does have COPD with smoking h istory so agree with steroids. However, also need to obtain net negative volume state to help dry the lungs out. Likely got a large amount of fluid during surgery and post op. Will give IV lasix 20mg today as patient has had improvement when he was net negative. WEan FiO2 for sats >88% but will need ambulatory pulse ox prior to discharge. Also would go ahead and start on oral PRednisone 60 and taper rapidly so to not prevent healing at wound site: 60 daily for 2 days, 40 daily for 2 days then 20 daily for 2 days then stop. May need a PRN rescue inhaler until he follows up in the office. Subjective Date of service: 12/05/21 Interval history: Weaned down to 2 liters. Good sats. Got lasix but I/O suggest that patient is still positive. Objective Vital Signs - 12hr 12/05/21 12/05/21 12/05/21 01:50 02:25 02:26 Temperature 98.2 F Pulse Rate 87 Pulse Rate [ 95 H Anterior Bilateral Throughout] Respiratory 20 Rate Respiratory 18 Rate [Anterior Bilateral Throughout] Blood Pressure 137/77 Blood Pressure [Right] O2 Sat by Pulse 96 95 Oximetry 12/05/21 12/05/21 12/05/21 05:41 08:09 08:39 Temperature 98.1 F Pulse Rate 56 L Pulse Rate [ Anterior Bilateral Throughout] Respiratory 20 20 Rate Respiratory Rate [Anterior Bilateral Throughout] Blood Pressure Blood Pressure 143/87 [Right] O2 Sat by Pulse 94 96 Oximetry 12/05/21 10:42 Temperature Pulse Rate Pulse Rate [ Anterior Bilateral Throughout] Respiratory Rate Respiratory Rate [Anterior Bilateral Throughout] Blood Pressure Blood Pressure [Right] O2 Sat by Pulse 94 Oximetry Constitutional: no acute distress, alert ENT: other (Poor dentition) Neck: no JVD Ascultation: Bilateral: diminished breath sounds Cardiovascular: regular rate and rhythm Gastrointestinal: normoactive bowel sounds, tender (Mildly tender near the incision sites), non-distended Extremities: edema (Both lower extremities) Neurologic: normal mental status, non-focal exam Psychiatric: mood appropriate CBC and BMP: 12/03/21 05:17 12/03/21 05:17 ABG, PT/INR, D-dimer: ABG ABG pH 7.438 pH Units (7.350-7.450) 12/02/21 15:35 POC ABG pCO2 34.1 mmHg (32.0-48.0) 12/01/21 21:24 ABG pCO2 36.3 mm Hg 12/02/21 15:35 POC ABG pO2 51.0 mmHg (83-108) L 12/01/21 21:24 ABG pO2 63.3 mm Hg (80.0-90.0) L 12/02/21 15:35 POC ABG HCO3 23.1 12/01/21 21:24 ABG O2 Saturation 94.3 % (95.0-99.0) L 12/02/21 15:35 PT/INR, D-dimer PT 13.3 Sec. (12.2-14.9) 11/29/21 22:26 INR 0.92 (0.87-1.13) 11/29/21 22:26 D-Dimer 1046.03 ng/mlDDU (0-234) H 12/01/21 20:55 Abnormal lab findings: Abnormal Labs 11/29/21 11/29/21 11/29/21 21:22 21:22 22:26 WBC 18.1 H RBC 3.55 L Hgb 10.2 L Hct 32.9 L MCHC 31 L RDW 16.3 H Plt Count 775 H Lymph % (Auto) 7.3 L Letcher % (Auto) Lymph # (Auto) Letcher # (Auto) 0.9 H Seg Neutrophils % 87.2 H Seg Neuts % (Manual) Lymphocytes % (Manual) Seg Neutrophils # 15.8 H Seg Neutrophils # Man Lymphocytes # (Manual) D-Dimer POC ABG pO2 ABG pO2 ABG O2 Saturation ABG Hemoglobin ABG Oxyhemoglobin Oxyhemoglobin Sodium 132 L Potassium 3.4 L Chloride 93.4 L Carbon Dioxide 20 L BUN Creatinine 1.9 H Glucose 159 H Lactic Acid 3.10 H* Calcium Alkaline Phosphatase 150 H Total Protein 8.7 H Albumin 3.7 L 03/03/22 03/03/22 03/04/22 06:45 06:45 05:30 WBC 15.1 H 14.0 H RBC 2.93 L 2.50 L Hgb 8.5 L 7.3 L Hct 26.9 L D 23.1 L MCHC RDW 16.7 H 16.4 H Plt Count 598 H 548 H Lymph % (Auto) 7.4 L Letcher % (Auto) Lymph # (Auto) 1.0 L Letcher # (Auto) Seg Neutrophils % 86.8 H Seg Neuts % (Manual) Lymphocytes % (Manual) Seg Neutrophils # 12.2 H Seg Neutrophils # Man Lymphocytes # (Manual) D-Dimer POC ABG pO2 ABG pO2 ABG O2 Saturation ABG Hemoglobin ABG Oxyhemoglobin Oxyhemoglobin Sodium Potassium Chloride Carbon Dioxide BUN 21 H Creatinine 1.7 H Glucose Lactic Acid Calcium 7.9 L Alkaline Phosphatase Total Protein Albumin 12/01/21 12/01/21 12/01/21 05:30 20:55 21:24 WBC RBC Hgb Hct MCHC RDW Plt Count Lymph % (Auto) Letcher % (Auto) Lymph # (Auto) Letcher # (Auto) Seg Neutrophils % Seg Neuts % (Manual) Lymphocytes % (Manual) Seg Neutrophils # Seg Neutrophils # Man Lymphocytes # (Manual) D-Dimer 1046.03 H POC ABG pO2 51.0 L ABG pO2 ABG O2 Saturation ABG Hemoglobin 8.0 L ABG Oxyhemoglobin 86.6 L Oxyhemoglobin Sodium 133 L Potassium Chloride Carbon Dioxide 21 L BUN Creatinine Glucose Lactic Acid Calcium 7.9 L Alkaline Phosphatase Total Protein Albumin 12/02/21 12/02/21 12/02/21 09:22 09:22 15:35 WBC RBC 2.60 L Hgb 7.5 L Hct 24.0 L MCHC 31 L RDW 16.7 H Plt Count 587 H Lymph % (Auto) Letcher % (Auto) 8.5 H Lymph # (Auto) Letcher # (Auto) 0.9 H Seg Neutrophils % Seg Neuts % (Manual) Lymphocytes % (Manual) Seg Neutrophils # Seg Neutrophils # Man Lymphocytes # (Manual) D-Dimer POC ABG pO2 ABG pO2 63.3 L ABG O2 Saturation 94.3 L ABG Hemoglobin 7.8 L ABG Oxyhemoglobin Oxyhemoglobin 92.5 L Sodium 131 L Potassium 3.5 L Chloride Carbon Dioxide 21 L BUN Creatinine Glucose Lactic Acid Calcium 8.0 L Alkaline Phosphatase Total Protein Albumin 12/03/21 12/03/21 12/03/21 05:17 05:17 13:13 WBC RBC 2.61 L Hgb 7.9 L Hct 23.8 L MCHC RDW 16.7 H Plt Count 562 H Lymph % (Auto) Letcher % (Auto) Lymph # (Auto) Letcher # (Auto) Seg Neutrophils % Seg Neuts % (Manual) 96.0 H Lymphocytes % (Manual) 2.0 L Seg Neutrophils # Seg Neutrophils # Man 10.0 H Lymphocytes # (Manual) 0.2 L D-Dimer POC ABG pO2 ABG pO2 ABG O2 Saturation ABG Hemoglobin ABG Oxyhemoglobin Oxyhemoglobin Sodium 135 L Potassium Chloride Carbon Dioxide BUN Creatinine Glucose 158 H Lactic Acid 3.30 H* Calcium Alkaline Phosphatase Total Protein Albumin
== END 2021-12-05 17:10 | disposition home health service (06) | DRG 853 ==
LOC: ED 19:56 → 3A 11-30 02:49
PROVIDERS: ADMIT Internal Medicine Geriatric Medicine; ATTEND Internal Medicine
PROC: 0YUA0JZ Supplement Bilateral Inguinal Region with Synthetic Substitute, Open Approach (ICD-10-PCS; principal; 2021-11-30)
PROC: 8E0W0CZ Robotic Assisted Procedure of Trunk Region, Open Approach (ICD-10-PCS; 2021-11-30)
PROC: 4A033R1 Measurement of Arterial Saturation, Peripheral, Percutaneous Approach (ICD-10-PCS; 2021-12-01)
DX: A41.9 Sepsis, unspecified organism (principal); N17.0 Acute kidney failure with tubular necrosis; J96.01 Acute respiratory failure with hypoxia; J44.1 Chronic obstructive pulmonary disease with (acute) exacerbation; K40.90 Unilateral inguinal hernia, without obstruction or gangrene, not specified as recurrent; R73.09 Other abnormal glucose; E87.6 Hypokalemia; K52.9 Noninfective gastroenteritis and colitis, unspecified; G62.9 Polyneuropathy, unspecified; M94.0 Chondrocostal junction syndrome [Tietze]; Z20.822 Contact with and (suspected) exposure to COVID-19
CPT/HCPCS: 36415; 36600; 71045; 71275; 74177; 80048; 80053; 81001; 82140; 82550; 82803; 82805; 83036; 83735; 84145; 84484; 85007; 85025; 85027; 85379; 85610; 85730; 86850; 86900; 86901; 87040; 93005; 93010; 94640; 94760; G0378; J3490; J7120; Q0162; C1781; J1100; J1170; J1644; J1885; J1940; J2250; J2270; J2405; J2543; J2704; J2920; J3010; J7030; Q9967; U0003

== ENCOUNTER 2021-12-13 17:59 | Emergency (ER) | payer SELFPAY ==
[2021-12-13] MEDS ORDERED: ONDANSETRON 4 MG/2 ML INJ IV ONE (18:57)
[2021-12-13] MEDS ORDERED: HYDROmorphone 1 MG/1 ML INJ IV ONE ×3 (18:57→23:27)
[2021-12-13] MEDS ORDERED: VANCOMYCIN/NS 1 GM/250 ML 1 GM/250 ML BAG IV ONE (18:59)
[2021-12-13] MEDS ORDERED: KETOROLAC 30 MG/1 ML INJ IV ONE (19:15)
[2021-12-13 19:31] LABS: Basophils % (Auto) 0.5 % (0.0-1.8); Eosinophils # (Auto) 0.4 K/mm3 (0.0-0.4); Eosinophils % (Auto) 4.3 % (0.0-4.3); Hematocrit 26.6 % (35.5-45.6); Hemoglobin 8.1 gm/dl (11.8-15.2); Lymphocytes # (Auto) 1.7 K/mm3 (1.2-5.4); Lymphocytes % (Auto) 18.4 % (13.4-35.0); Mean Corpuscular HGB Conc 30 % (32-34); Mean Corpuscular Volume 89 fl (84-94); Monocytes # (Auto) 0.8 K/mm3 (0.0-0.8); Monocytes % (Auto) 8.7 % (0.0-7.3); Platelet Count 369 K/mm3 (140-440); Red Blood Count 2.97 M/mm3 (3.65-5.03); Red Cell Distribution Width 18.1 % (13.2-15.2)
[2021-12-13 19:54] LABS: Alanine Aminotransferase 33 units/L (7-56); Albumin 3.7 g/dL (3.9-5); BUN/Creatinine Ratio 23; Blood Urea Nitrogen 23 mg/dL (9-20); Calcium 8.5 mg/dL (8.4-10.2); Hemolysis Index 5; INR 0.87 (0.87-1.13)
[2021-12-13 20:13] LABS: Erythrocyte Sedimentation Rate 56 mm/Hr (0-20)
--- NOTE | 2021-12-13 20:23 | XRay Report ---
Bilateral feet-2 views each INDICATION: b/l foot infection. COMPARISON: None available. IMPRESSION: Moderate diffuse soft tissue swelling about both feet with no bone destruction or acute osseous abnormality identified. Amputation change is present at the proximal phalanx neck level of th e right great toe. Mild underlying degenerative changes throughout both feet with bulky bilateral ent hesopathic change along the calcaneal tuberosities. Signer Name: Tony Vickers MD Signed: 12/13/2021 8:19 PM Workstation Name: [id number]
--- NOTE | 2021-12-13 20:25 | XRay Report ---
CHEST 1 VIEW INDICATION: edema. COMPARISON: 11/30/2021 FINDINGS: SUPPORT DEVICES: None. HEART: Within normal limits. LUNGS/PLEURA: Chronic-appearing changes in the lung for the most part but there is mild superimposed patchy left greater than right basilar airspace disease. No dense consolidation or effusion. ADDITIONAL FINDINGS: None. IMPRESSION: 1. Lung findings as above. Signer Name: Tony Vickers MD Signed: 12/13/2021 8:20 PM Workstation Name: [id number]
--- NOTE | 2021-12-13 20:29 | Vascular Lab Report ---
. DUPLEX DOPPLER LOWER EXTREMITY VEINS, BILATERAL INDICATION: b/l leg welling. TECHNIQUE: Duplex doppler imaging was performed through the veins of both lower extremities using venous william jairon and other maneuvers. COMPARISON: No relevant prior imaging study available. FINDINGS: Right Common femoral vein: Negative. Right Superficial femoral vein: Negative. Right Popliteal vein: Negative. Right Calf veins: Negative. Left Common femoral vein: Negative. Left Superficial femoral vein: Negative. Left Popliteal vein: Negative. Left Calf veins: Negative. Additional findings: None.. IMPRESSION: 1. No sonographic evidence for DVT in either lower extremity. Signer Name: Tony Vickers MD Signed: 12/13/2021 8:25 PM Workstation Name: [id number]
[2021-12-13] MEDS ORDERED: GABAPENTIN 300 MG CAP PO ONE (23:14)
--- NOTE | 2021-12-13 23:22 | Emergency Department Report ---
ED Extremity Problem HPI - General Chief complaint: Extremity Problem,Nontraumatic Stated complaint: LEG PAIN Time Seen by Provider: 12/13/21 18:46 Source: EMS Mode of arrival: Stretcher Limitations: No Limitations - History of Present Illness Initial comments: 61-year-old male undomiciled male presents to the hospital complaining of bilateral lower extremity pain and swelling for the last 2 days. Patient complains of severe 10 out of 10 pain worse with movement and palpation. Pain described as a deep shooting pain in his lower extremities down to his foot. No reports of fever. Patient recently admitted here with discharge December 01 secondary to hernia and hypoxia thought to be due to COPD. Patient was discharged on gabapentin, Levaquin, oxycodone, Spiriva, and prednisone. Patient does have a smoking history. Patient states that he has never had severe swelling or pain like this in the past. As per medical record review it is noted the patient does have signs of venous stasis edema and neuropathy. Patient was unable to recently fill his Spiriva and another medication due to cost. He is unsure if he failed gabapentin and Levaquin upon his recent discharge Severity scale (0 -10): 8 - Related Data Previous Rx's Medication Instructions Recorded Last Taken Type levoFLOXacin [Levaquin TAB] 500 mg PO QDAY #7 12/01/21 Unknown Rx Tiotropium [Spiriva] 18 mcg IH QDAY 30 Days #1 box 12/05/21 Unknown Rx predniSONE [Deltasone] 20 mg PO DAILY 6 Days #12 tab 12/05/21 Unknown Rx Gabapentin 300 mg PO BID #60 capsule 12/13/21 Unknown Rx Sulfamethoxazole/Trimethoprim 1 each PO BID #20 tab 12/13/21 Unknown Rx [Bactrim DS TAB] oxyCODONE /ACETAMINOPHEN [Percocet 1 tab PO Q4H PRN #20 tablet 12/13/21 Unknown Rx 5/325 mg] Allergies Allergy/AdvReac Type Severity Reaction Status Date / Time No Known Allergies Allergy Verified 12/13/21 18:03 ED Review of Systems ROS: Stated complaint: LEG PAIN Other details as noted in HPI Comment: All other systems reviewed and negative ED Past Medical Hx - Past Medical History Hx Hypertension: No Hx Heart Attack/AMI: No Hx Congestive Heart Failure: No Hx Liver Disease: No Hx Renal Disease: No Hx Asthma: No - Surgical History Additional Surgical History: right first toe - Social History Smoking Status: Unknown if ever smoked - Medications Home Medications: Home Medications Medication Instructions Recorded Confirmed Last Taken Type levoFLOXacin [Levaquin TAB] 500 mg PO QDAY #7 12/01/21 Unknown Rx Tiotropium [Spiriva] 18 mcg IH QDAY 30 Days #1 box 12/05/21 Unknown Rx predniSONE [Deltasone] 20 mg PO DAILY 6 Days #12 tab 12/05/21 Unknown Rx Gabapentin 300 mg PO BID #60 capsule 12/13/21 Unknown Rx Sulfamethoxazole/Trimethoprim 1 each PO BID #20 tab 12/13/21 Unknown Rx [Bactrim DS TAB] oxyCODONE /ACETAMINOPHEN [Percocet 1 tab PO Q4H PRN #20 tablet 12/13/21 Unknown Rx 5/325 mg] ED Physical Exam - General Limitations: No Limitations - Other Other exam information: General: Moderate distress secondary to pain Head: Atraumatic Eyes: normal appearance ENT: Moist mucous membranes Neck: Normal appearance, no midline tenderness Chest: Clear to auscultation bilaterally CV: Regular rate and rhythm Abdomen: Soft, normal bowel sounds, nontender, nondistended, no rebound or guarding Back: Normal inspection Extremity: Bilateral lower extremity 3+ edema with erythema, warmth to lower extremity and bilateral feet. Palpable right DP pulse. Dopplerable left DP pulse. Mild dark/black discoloration of distal pulp of left great toe without crepitus. Leg symmetrical Neuro: Alert O x 3, no facial asymmetry, speech clear, no gross motor sensory deficit Psych: Appropriate behavior Skin: No rash ED Course Vital Signs 12/13/21 12/13/21 12/13/21 18:01 19:40 19:41 Temperature 97.7 F Pulse Rate 81 Respiratory 18 18 18 Rate Blood Pressure 120/59 [Left] O2 Sat by Pulse 98 Oximetry ED Medical Decision Making - Lab Data Result diagrams: 12/13/21 19:18 12/13/21 19:18 Lab Results 12/13/21 12/13/21 12/13/21 Range/Units 19:18 19:18 19:18 WBC 9.1 (4.5-11.0) K/mm3 RBC 2.97 L (3.65-5.03) M/mm3 Hgb 8.1 L (11.8-15.2) gm/dl Hct 26.6 L (35.5-45.6) % MCV 89 (84-94) fl MCH 27 L (28-32) pg MCHC 30 L (32-34) % RDW 18.1 H (13.2-15.2) % Plt Count 369 (140-440) K/mm3 Lymph % (Auto) 18.4 (13.4-35.0) % Dawson % (Auto) 8.7 H (0.0-7.3) % Eos % (Auto) 4.3 (0.0-4.3) % Baso % (Auto) 0.5 (0.0-1.8) % Lymph # (Auto) 1.7 (1.2-5.4) K/mm3 Dawson # (Auto) 0.8 (0.0-0.8) K/mm3 Eos # (Auto) 0.4 (0.0-0.4) K/mm3 Baso # (Auto) 0.0 (0.0-0.1) K/mm3 Seg Neutrophils % 68.1 (40.0-70.0) % Seg Neutrophils # 6.2 (1.8-7.7) K/mm3 ESR 56 (0-20) mm/Hr PT 12.7 (12.2-14.9) Sec. INR 0.87 (0.87-1.13) APTT 25.0 (24.2-36.6) Sec. Sodium 139 (137-145) mmol/L Potassium 4.4 (3.6-5.0) mmol/L Chloride 105.0 (98-107) mmol/L Carbon Dioxide 21 L (22-30) mmol/L Anion Gap 17 mmol/L BUN 23 H (9-20) mg/dL Creatinine 1.0 (0.8-1.3) mg/dL Estimated GFR > 60 ml/min BUN/Creatinine Ratio 23 % Glucose 91 (75-100) mg/dL Calcium 8.5 (8.4-10.2) mg/dL Total Bilirubin 0.20 (0.1-1.2) mg/dL AST 33 (5-40) units/L ALT 33 (7-56) units/L Alkaline Phosphatase 90 (35-129) units/L NT-Pro-B Natriuret Pep 264.3 (0-900) pg/mL Total Protein 7.2 (6.3-8.2) g/dL Albumin 3.7 L (3.9-5) g/dL Albumin/Globulin Ratio 1.1 % - Radiology Data Radiology results: report reviewed CHEST 1 VIEW INDICATION: edema. COMPARISON: 11/30/2021 FINDINGS: SUPPORT DEVICES: None. HEART: Within normal limits. LUNGS/PLEURA: Chronic-appearing changes in the lung for the most part but there is mild superimposed patchy left greater than right basilar airspace disease. No dense consolidation or effusion. ADDITIONAL FINDINGS: None. IMPRESSION: 1. Lung findings as above. Bilateral feet-2 views each INDICATION: b/l foot infection. COMPARISON: None available. IMPRESSION: Moderate diffuse soft tissue swelling about both feet with no bone destruction or acute osseous abnormality identified. Amputation change is present at the proximal phalanx neck level of the right great toe. Mild underlying degenerative changes throughout both feet with bulky bilateral enthesopathic change along the calcaneal tuberosities. . DUPLEX DOPPLER LOWER EXTREMITY VEINS, BILATERAL INDICATION: b/l leg welling. TECHNIQUE: Duplex doppler imaging was performed through the veins of both lower extremities using venous compression and other maneuvers. COMPARISON: No relevant prior imaging study available. FINDINGS: Right Common femoral vein: Negative. Right Superficial femoral vein: Negative. Right Popliteal vein: Negative. Right Calf veins: Negative. Left Common femoral vein: Negative. Left Superficial femoral vein: Negative. Left Popliteal vein: Negative. Left Calf veins: Negative. Additional findings: None.. IMPRESSION: 1. No sonographic evidence for DVT in either lower extremity. - Medical Decision Making 61-year-old undomiciled male presents to the hospital with significant bilateral lower extremity edema and lower extremity shooting pain. As per medical record review it is likely that patient has underlying venous stasis disease with neuropathy which is chronic and perhaps progressive however, it is also unclear the patient is taking the medications as prescribed his recent medications as prescribed. Patient has not had fever, leukocytosis, renal failure, hepatic failure, and only slight hypoalbumin anemia. He had does have elevated ESR without signs of osteomyelitis. Bilateral Doppler negative for DVT. patient did receive IV narcotic pain medication, NSAIDs, IV vancomycin dose x1, and gabapentin. Patient will be discharged home with pain medication, antibiotics, and encouraged to take gabapentin for neuropathic related pain as per [place] prescription drug monitoring Filled Written ID Drug QTY Days Prescriber RX # Dispenser Refill Daily Dose* 12/06/2021 12/01/2021 1 Oxycodone-Acetaminophen 5-22355.00 2 Re Jerson [id number] Babak ([id number]) 0 10/17/2021 10/17/2021 2 Oxycodone-Acetaminophen 5-83277.00 3 Paige Mas [id number] Gra ([id number]) 0 Critical Care Time: No Critical care attestation.: If time is entered above; I have spent that time in minutes in the direct care of this critically ill patient, excluding procedure time. ED Disposition Clinical Impression: Venous stasis dermatitis of both lower extremities, Bilateral cellulitis of lower leg Disposition: HOME / SELF CARE / HOMELESS Is pt being admited?: No Does the pt Need Aspirin: No Condition: Stable Instructions: Cellulitis, Adult, Stasis Dermatitis Additional Instructions: Take the medication as prescribed. Follow-up with your doctor or doctor/clinic provided. Return if symptoms worsen as indicated by your discharge instructions. Prescriptions: Sulfamethoxazole/Trimethoprim [Bactrim DS TAB] 1 each PO BID #20 tab Gabapentin 300 mg PO BID #60 capsule oxyCODONE /ACETAMINOPHEN [Percocet 5/325 mg] 1 tab PO Q4H PRN #20 tablet PRN Reason: Pain, Moderate (4-6) Referrals: PRIMARY MD FRANCINE [Primary Care Provider] - 3-5 Days [facility] [Provider Group] - 3-5 Days DARCI BERMUDEZ MD [Staff Physician] - 3-5 Days Time of Disposition: 23:41
[2021-12-14 01:07] VITALS: BP 142/77
[2021-12-15] MEDS ORDERED: SUCCINYLCHOLINE CHLORIDE 200 MG/10 ML INJ MDV ONE (03:28)
[2021-12-15] MEDS ORDERED: ETOMIDATE 20 MG/10 ML INJ IV ONE (03:28)
== END 2021-12-14 02:41 | disposition home or self-care (01) ==
LOC: ED 17:59
DX: I87.2 Venous insufficiency (chronic) (peripheral) (principal); L03.116 Cellulitis of left lower limb; L03.115 Cellulitis of right lower limb
CPT/HCPCS: 36415; 71045; 73620; 80053; 83880; 85025; 85610; 85652; 85730; 87040; 93970; 96365; 96366; 96375; 96376; 99285; J1170; J1885; J2405; J3370; J3490; J0330

== ENCOUNTER 2021-12-22 04:34 | Emergency (ER) | payer SELFPAY ==
[2021-12-22] MEDS ORDERED: TETANUS,DIPHTHERIA TOXOID ADULT 0.5 ML INJ IM ONE (05:24)
[2021-12-22] MEDS ORDERED: MORPHINE 2 MG/1 ML INJ IV ONE ×2 (05:24→06:04)
[2021-12-22] MEDS ORDERED: LORazepam 2 MG/ML VIAL IV ONE ×2 (05:43→07:34)
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
[2021-12-22 05:50] LABS: Basophils % (Auto) 0.6 % (0.0-1.8); Eosinophils # (Auto) 0.1 K/mm3 (0.0-0.4); Eosinophils % (Auto) 0.9 % (0.0-4.3); Hematocrit 25.2 % (35.5-45.6); Hemoglobin 7.6 gm/dl (11.8-15.2); Lymphocytes # (Auto) 0.6 K/mm3 (1.2-5.4); Lymphocytes % (Auto) 8.7 % (13.4-35.0); Mean Corpuscular HGB Conc 30 % (32-34); Mean Corpuscular Volume 88 fl (84-94); Monocytes # (Auto) 0.6 K/mm3 (0.0-0.8); Monocytes % (Auto) 8.2 % (0.0-7.3); Platelet Count 344 K/mm3 (140-440); Red Blood Count 2.87 M/mm3 (3.65-5.03)
[2021-12-22 08:10] VITALS: BP 117/56
== END 2021-12-22 08:38 | disposition short-term general hospital (02) ==
LOC: ED 04:34
DX: S01.111A Laceration without foreign body of right eyelid and periocular area, initial encounter (principal); M54.2 Cervicalgia; F17.200 Nicotine dependence, unspecified, uncomplicated; F12.90 Cannabis use, unspecified, uncomplicated; Z72.89 Other problems related to lifestyle; Z79.899 Other long term (current) drug therapy; W18.39XA Other fall on same level, initial encounter; Y93.89 Activity, other specified; Y92.89 Other specified places as the place of occurrence of the external cause; Y99.8 Other external cause status
CPT/HCPCS: 36415; 85025; 90471; 90714; 96374; 96375; 96376; 99291; J2060; J2270; 99285